=== PATIENT | female | born 1955 | race Caucasian/White ===

== ENCOUNTER 2017-04-10 11:30 | Emergency (ER) | payer BC ==
[2017-04-10 11:38] VITALS: BMI 27.4
[2017-04-10] MEDS ORDERED: ASPIRIN PO ONE (11:54)
--- NOTE | 2017-04-10 11:58 | DR.GENAD ---
HPI - PCP Primary Care Physician: COLLEEN - HPI Comment HPI Comment: PATIENT HAVE SOB AND CHEST PAIN TIME ONE DAY. SEEN IN PCP OFFICE. EKG INDICATED T WAVE CHANGES. HERE FOR FURTHER EVALUATION. PATIENT HAD SIMILAR PAIN BEFORE AND WAS ADMITTED IN [facility]. DENIES PREVIOUS CARDIAC CATH. - Complaint/Symptoms Chief Complaint Doctors Comments: CHEST PAIN, SOB FOR SEVERAL HOURS. Chief Complaint:: PATIENT WAS SEEN AT HER DOCTOR IN [place] AND WAS TOLD TO COME HER DUE TO HER EKG IN THE OFFICE. SHE STATED SHE HAS DIFFICULITY BREATHING - Nurses notes reviewed Nurses Notes Review: Yes - Source History Provided: Patient - Mode of Arrival Mode of Arrival: Ambulatory - Timing Onset of Chief Complaint: 04/09/17 Came on: Suddenly - Duration Duration: Constant Duration: Hours PMH - PMH Past Medical History: Yes Past Medical History: Hypertension Past Surgical History: Yes Surgical History: Hysterectomy, Ortho Surgery - Family History History of Family Medical Conditions: No - Social History Does patient currently use any type of tobacco product: No Have you used tobacco products in the last 12 months: No Type of Tobacco Use: None Does any household member use tobacco: No Alcohol Use: None Do you use any recreational Drugs:: No Lives With: Family Lives Where: Home - infectious screening In the last 2 months have you had wt loss of >10#?: NO Have you had fever, night sweats or hemotysis?: No Have you traveled outside the country in the last 6 months?: No Isolation: Standard ROS - Review of Systems Constitutional: Weakness, Fatigue. negative: Chills, Fever Eyes: No Symptoms Reported. negative: Eye Pain, Discharge ENTM: No Symptoms Reported. negative: Ear Pain, Nose Discharge, Nose Congestion , Throat Pain Respiratoy: Short of Breath. negative: Productive Cough, Non-Productive Cough, Wheezing, Hemoptysis Cardiovascular: Chest Pain. negative: Edema, Palpitations, Syncope Gastrointestinal/Abdominal: No Symptoms Reported Genitourinary: No Symptoms Reported. negative: Dysuria, Frequency, Hematuria Neurological: No Symptoms Reported, Headache, Weakness. negative: Dizziness Musculoskeletal: Muscle Pain Integumentary: No Symptoms Reported Hematologic/Lymphatic: No Symptoms Reported Endocrine: No Symptoms Reported All Other Systems: Reviewed and Negative PE - Vital Signs Vitals: Temperature 98.6 F Pulse Rate [Right Brachial] 60 Pulse Rate 68 Respiratory Rate 16 Blood Pressure [Right Arm] 200/82 Blood Pressure 209/89 O2 Sat by Pulse Oximetry 100 - General Limitations: No Limitations General Appearance: Alert - Head Head Exam: Normal Inspection - Eyes Eye exam: Normal Appearance - ENT ENT Exam: Normal External Ear Exam External Ear Exam: Normal External Inspection TM/Canal Exam: Bilateral Normal Nose Exam: Normal Nose Exam Mouth Exam: Normal Inspection Throat Exam: Normal Inspection - Neck Neck Exam: Trachea Midline - Chest Chest Inspection: Symmetric Chest Wall Rise - Respiratory Respiratory Exam: Normal Lung Sounds Bilat Respiratory Exam: Bilateral Clear to Auscultation - Cardiovascular Cardiovascular Exam: Regular Rate, Normal Rhythm, Normal Heart Sounds - Abdominal Exam Abdominal Exam: Normal Bowel Sounds, Soft. negative: Tenderness - Extremities Extremities Exam: Normal Inspection - Back Back Exam: Normal Inspection - Neurologic Neurological Exam: Alert, Oriented X3, CN II-XII Intact, Normal Gait, Reflexes Normal. negative: Motor Sensory Deficit - Psychiatric Psychiatric Exam: Anxious - Skin Skin Exam: Normal Color MDM - Additional Information Additional Information Obtained From: Family - Differential Diagnosis Differential Diagnosis: CHEST PAIN, RESPIRATORY DISTRESS Course - Treatment Treatment: SEE ORDERS. - Consultation Consultation Comments: DISCUSS PATIENT WITH DR. MARK, HE WILL ADMIT PATIENT. - Education/Counseling Education/Counseling: Patient, Family, Education Educated On: Treatment, Diagnosis ROR - Labs Reviewed Laboratory Results Reviewed?: Yes Result Diagrams: 04/10/17 12:02 04/10/17 12:02 Laboratory: WBC 8.0 X10^3/uL (3.6-10.0) 04/10/17 12:02 RBC 4.61 X10^6/uL (3.5-5.4) 04/10/17 12:02 Hgb 14.3 g/dL (12.0-16.0) 04/10/17 12:02 Hct 40.8 % (36.0-47.0) 04/10/17 12:02 MCV 88.5 fL (80.0-100.0) 04/10/17 12:02 MCH 31.0 pg (27.0-34.0) 04/10/17 12:02 MCHC 35.0 g/dL (33.0-35.0) 04/10/17 12:02 RDW 12.0 % (11.6-16.5) 04/10/17 12:02 Plt Count 261 X10^3/uL (150.0-450.0) 04/10/17 12:02 MPV 9.8 fL (7.4-11.0) 04/10/17 12:02 Neut % 69.6 % (42.0-75.0) 04/10/17 12:02 Lymph % 22.3 % (21.0-51.0) 04/10/17 12:02 [place] % 4.6 % (0.0-13.0) 04/10/17 12:02 Eos % 2.3 % (0.9-2.9) 04/10/17 12:02 Baso % 1.2 % (0.2-1.0) H 04/10/17 12:02 Neut # 5.6 x10^3/uL (2.2-4.8) H 04/10/17 12:02 Lymph # 1.8 X10^3/uL (1.3-2.9) 04/10/17 12:02 [place] # 0.4 x10^3/uL (0.3-0.8) 04/10/17 12:02 Eos # 0.2 x10^3/uL (0.0-0.2) 04/10/17 12:02 Baso # 0.1 X10^3/uL (0.0-0.1) 04/10/17 12:02 Absolute Nucleated RBC 0.0 /100WBC 04/10/17 12:02 INR Target Range - 04/10/17 12:02 INR 1.02 (0.8-1.3) 04/10/17 12:02 PTT 30.8 SECONDS (22.9-36.5) 04/10/17 12:02 PTT Comment - 04/10/17 12:02 D-Dimer < 100 ng/mL (0-400) 04/10/17 12:02 Sodium 139 mmol/L (136-145) 04/10/17 12:02 Corrected Sodium TNP 04/10/17 12:02 Potassium 3.8 mmol/L (3.5-5.1) 04/10/17 12:02 Chloride 101 mmol/L (98-107) 04/10/17 12:02 Carbon Dioxide 29.3 mmol/L (21-32) 04/10/17 12:02 BUN 12 mg/dL (7-18) 04/10/17 12:02 Creatinine 1.07 mg/dL (0.55-1.02) H 04/10/17 12:02 Est GFR (MDRD) Af Amer > 60 (>60) 04/10/17 12:02 Est GFR (MDRD) Non-Af 55 (>60) L 04/10/17 12:02 Glucose 104 mg/dL (65-99) H 04/10/17 12:02 Calcium 9.7 mg/dL (8.5-10.1) 04/10/17 12:02 B-Natriuretic Peptide 35.1 pg/mL (0-79) 04/10/17 12:02 Specimen Type Clean catch urine 04/10/17 12:04 Urine Color Straw (YELLOW) 04/10/17 12:04 Urine Appearance Clear (CLEAR) 04/10/17 12:04 Urine pH 8.0 (5.0 - 8.0) 04/10/17 12:04 Ur Specific [place] 1.010 (1.000-1.030) 04/10/17 12:04 Urine Protein Negative (NEGATIVE) 04/10/17 12:04 Urine Glucose (UA) Negative (NEGATIVE) 04/10/17 12:04 Urine Ketones Negative (NEGATIVE) 04/10/17 12:04 Urine Occult Blood Negative (NEGATIVE) 04/10/17 12:04 Urine Nitrite Negative (NEGATIVE) 04/10/17 12:04 Urine Bilirubin Negative (NEGATIVE) 04/10/17 12:04 Urine Urobilinogen Normal (NORMAL) 04/10/17 12:04 Ur Leukocyte Esterase 1+ (NEGATIVE) 04/10/17 12:04 Urine RBC 0-1 /HPF (NEGATIVE) 04/10/17 12:04 Urine WBC 0-3 /HPF (NEGATIVE) 04/10/17 12:04 Ur Squamous Epith Cells Rare /HPF (NEGATIVE) 04/10/17 12:04 Urine Bacteria Negative /HPF (NEGATIVE) 04/10/17 12:04 Ur Culture Indicated? No/not indicated 04/10/17 12:04 H. pylori IgG Antibody Negative (NEGATIVE) 04/10/17 12:02 - XRAY XRAY Findings: REPORT DISCUSS WITH PATIENT. - EKG Rhythm: NSR (EKG NOTED) - Diagnosis Discharge Problem: Respiratory distress Chest pain Qualifiers: Chest pain type: precordial pain Qualified Code(s): R07.2 - Precordial pain - Discharge Plan Disposition: ADMITTED INPATIENT Condition: Stable - Follow ups/Referrals - Instructions
--- NOTE | 2017-04-10 12:12 | RAD ---
HISTORY: Chest pain Study: AP portable chest Comparison: None Findings: The trachea is midline. The cardiac silhouette is unremarkable. The lungs are clear without focal infiltrate or effusion. The bony thorax is unremarkable. IMPRESSION: 1. No acute cardiopulmonary disease. Reported By:
[2017-04-10 12:21] LABS: BILIRUBIN,URINE NEGATIVE (NEGATIVE); BLOOD/HEMOGLOBIN,URINE NEGATIVE (NEGATIVE); GLUCOSE, URINE NEGATIVE (NEGATIVE); KETONES,URINE NEGATIVE (NEGATIVE); LEUKOCYTE ESTERASE ,URINE 1+ (NEGATIVE); NITRITES,URINE NEGATIVE (NEGATIVE); PROTEIN,URINE NEGATIVE (NEGATIVE); UROBILINOGEN,URINE NORMAL (NORMAL)
[2017-04-10 12:22] LABS: BLOOD UREA NITROGEN 12 mg/dL (7-18); CALCIUM 9.7 mg/dL (8.5-10.1); CARBON DIOXIDE 29.3 mmol/L (21-32); CHLORIDE 101 mmol/L (98-107); CREATININE 1.07 mg/dL (0.55-1.02); GLUCOSE 104 mg/dL (65-99); SODIUM 139 mmol/L (136-145); eGFR BLACK RACES > 60 (>60); eGFR NON BLACK RACES 55 (>60)
[2017-04-10 12:28] LABS: BASOPHILS # (AUTO) 0.1 X10^3/uL (0.0-0.1); BASOPHILS % (AUTO) 1.2 % (0.2-1.0); EOSINOPHILS # (AUTO) 0.2 x10^3/uL (0.0-0.2); EOSINOPHILS % (AUTO) 2.3 % (0.9-2.9); HEMATOCRIT 40.8 % (36.0-47.0); HEMOGLOBIN 14.3 g/dL (12.0-16.0); LYMPHOCYTES # (AUTO) 1.8 X10^3/uL (1.3-2.9); LYMPHOCYTES % (AUTO) 22.3 % (21.0-51.0); MEAN CORPUSCULAR VOLUME 88.5 fL (80.0-100.0); MEAN PLATELET VOLUME 9.8 fL (7.4-11.0); MONOCYTES # (AUTO) 0.4 x10^3/uL (0.3-0.8); MONOCYTES % (AUTO) 4.6 % (0.0-13.0); NEUTROPHILS # (AUTO) 5.6 x10^3/uL (2.2-4.8); NEUTROPHILS % (AUTO) 69.6 % (42.0-75.0); PLATELET COUNT 261 X10^3/uL (150.0-450.0); RED BLOOD COUNT 4.61 X10^6/uL (3.5-5.4)
[2017-04-10 12:32] LABS: APPEARANCE,URINE CLEAR (CLEAR); BACTERIA,URINE NEGATIVE /HPF (NEGATIVE); COLOR,URINE STRAW (YELLOW); RBC,URINE 0-1 /HPF (NEGATIVE); SQUAMOUS EPITHELIAL CELL,UR RARE /HPF (NEGATIVE)
[2017-04-10 12:36] LABS: B-TYPE NATRIURETIC PEPTIDE 35.1 pg/mL (0-79)
[2017-04-10 12:44] LABS: D DIMER < 100 ng/mL (0-400)
[2017-04-10] MEDS ORDERED: NIFEDIPINE CAP 10 MG PO ONE (13:25)
[2017-04-10] MEDS ORDERED: NIFEDIPINE CAP 10 MG ONE (13:30)
[2017-04-10 13:32] LABS: ALANINE AMINOTRANSFERASE 32 Units/L (12-78); ALBUMIN 4.2 g/dL (3.4-5.0); ALKALINE PHOSPHATASE 83 Units/L (46-116); ASPARTATE AMINO TRANSFERASE 26 Units/L (15-37); CKMB % 0.8 % (<4); CREATINE KINASE 129 Units/L (26-192); CREATINE KINASE MB < 1.0 ng/mL (0-4.0); TOTAL PROTEIN 8.2 g/dL (6.4-8.2); TROPONIN I < 0.02 ng/mL (0-1.5)
[2017-04-10] MEDS: ASPIRIN 81 MG CHEWTAB PO SCH (14:46)
[2017-04-10] MEDS ORDERED: PREVNAR 13 IM ONE (16:29)
[2017-04-10] MEDS: VISTARIL PO PRN (18:00)
[2017-04-10 18:19] LABS: CKMB % 0.8 % (<4); CREATINE KINASE 122 Units/L (26-192); CREATINE KINASE MB < 1.0 ng/mL (0-4.0); TROPONIN I < 0.02 ng/mL (0-1.5)
[2017-04-10] MEDS: NORCO 5/325 MG TAB PO PRN (21:26)
[2017-04-11 01:22] LABS: CKMB % 0.9 % (<4); CREATINE KINASE 113 Units/L (26-192); CREATINE KINASE MB < 1.0 ng/mL (0-4.0); TROPONIN I < 0.02 ng/mL (0-1.5)
[2017-04-11 05:19] LABS: BASOPHILS # (AUTO) 0.1 X10^3/uL (0.0-0.1); BASOPHILS % (AUTO) 1.1 % (0.2-1.0); EOSINOPHILS # (AUTO) 0.4 x10^3/uL (0.0-0.2); EOSINOPHILS % (AUTO) 4.3 % (0.9-2.9); HEMATOCRIT 41.9 % (36.0-47.0); HEMOGLOBIN 14.4 g/dL (12.0-16.0); MEAN CORPUSCULAR HEMOGLOBIN 30.8 pg (27.0-34.0); MEAN CORPUSCULAR HGB CONC 34.5 g/dL (33.0-35.0); MEAN CORPUSCULAR VOLUME 89.3 fL (80.0-100.0); MEAN PLATELET VOLUME 9.9 fL (7.4-11.0); MONOCYTES # (AUTO) 0.5 x10^3/uL (0.3-0.8); MONOCYTES % (AUTO) 6.4 % (0.0-13.0); NEUTROPHILS # (AUTO) 4.5 x10^3/uL (2.2-4.8); NEUTROPHILS % (AUTO) 53.2 % (42.0-75.0); PLATELET COUNT 274 X10^3/uL (150.0-450.0); RED BLOOD COUNT 4.69 X10^6/uL (3.5-5.4); RED CELL DISTRIBUTION WIDTH 12.5 % (11.6-16.5); WHITE BLOOD COUNT 8.5 X10^3/uL (3.6-10.0)
[2017-04-11 05:34] LABS: ALANINE AMINOTRANSFERASE 31 Units/L (12-78); ALBUMIN 3.9 g/dL (3.4-5.0); ALKALINE PHOSPHATASE 74 Units/L (46-116); ASPARTATE AMINO TRANSFERASE 24 Units/L (15-37); BLOOD UREA NITROGEN 18 mg/dL (7-18); CARBON DIOXIDE 26.6 mmol/L (21-32); CHLORIDE 104 mmol/L (98-107); CHOL/HDL RATIO 5.7 (0.0-5.0); CHOLESTEROL 255 mg/dL (0-200); CREATININE 1.42 mg/dL (0.55-1.02); GLUCOSE 93 mg/dL (65-99); HDL CHOLESTEROL 45 mg/dL (40-60); SODIUM 141 mmol/L (136-145); TOTAL PROTEIN 7.8 g/dL (6.4-8.2); TRIGLYCERIDES 197 mg/dL (0-150); eGFR BLACK RACES 48 (>60); eGFR NON BLACK RACES 40 (>60)
[2017-04-11] MEDS: ASPIRIN 81 MG CHEWTAB PO SCH (08:21)
[2017-04-11] MEDS ORDERED: PATIENT'S HOME MEDICATION (Misc Home Med 1 TAB) PO SCH (09:00)
[2017-04-11] MEDS ORDERED: PREVNAR 13 IM ONE (09:50)
[2017-04-11] MEDS: PEPCID 20 MG IV PREMIX* 20 MG/50 ML BAG IV SCH ×2 (10:30→20:48)
--- NOTE | 2017-04-11 13:54 | DR.H&P ---
H&P - History & Physical for Day of: H&P Date: 04/10/17 - Chief Complaint Chief Complaint: Chest pain, shortness of breath, left breast pain - Allergies Allergies/Adverse Reactions: Allergies Allergy/AdvReac Type Severity Reaction Status Date / Time codeine Allergy Verified 04/10/17 11:34 - History of Present Illness History of Present Illness: Ms. Rose is a 62-year-old white female who was admitted to the emergency room after presenting with complaints of chest pain and shortness of breath. Patient states pain started on Monday or Monday and has not improved. Patient denies any injury. Patient states she had a similar episode in November 2016 and was admitted to [facility] where she had a stress test and echocardiogram which were negative per patient. Patient also complains of left breast pain she recently had an ultrasound at [place]. We will admit patient for further evaluation of chest pain, ruling out any acute cardiac activity. - Past Medical History Past Medical History: Hypertension Additional Medical History: fibrocystic breast disease - Past Surgical History Surgical History: Hysterectomy, Ortho Surgery - Family History Family Medical History: Heart Failure, Hypertension - Social History Does patient currently use any type of tobacco product: No Have you used tobacco products in the last 12 months: No Type of Tobacco Use: None Does any household member use tobacco: No Alcohol Use: None Drug Use: None - Medications Home Medications: Triamterene/Hydrochlorothiazid [Triamterene-Hctz 37.5-25 mg Cp] 1 tab PO DAILY 04/11/17 [History Confirmed 04/11/17] - Review of Systems Constitutional: No Symptoms Reported Eyes: No Symptoms Reported ENT: No Symptoms Reported Respiratory: Shortness of Breath Cardiovascular: Chest Pain Gastrointestinal: No Symptoms Reported Genitourinary: No Symptoms Reported Musculoskeletal: No Symptoms Reported Skin: No Symptoms Reported Neurological: No Symptoms Reported - Physical Exam Vital Signs: Temperature 98.3 F Pulse Rate [Right Brachial] 64 Respiratory Rate 18 Blood Pressure [Right Arm] 125/59 O2 Sat by Pulse Oximetry 97 Oriented: Normal Eyes: Normal Ear: Normal Nose: Normal Throat: Normal Respiratory: Clear Throughout Cardiovascular: Normal. negative: Edema : Normal Auscultation: Bowel Sounds: Normal Palpation: Normal Tenderness: Normal Skin: Normal Musculoskeletal: Normal Affect: Anxious Speech Pattern: Clear, Appropriate - Assessment/Plan (1) Chest pain Qualifiers: Chest pain type: precordial pain Ischemic chest pain type: I Qualified Code(s): R07.2 - Precordial pain Status: Acute Plan: admit for serial cardiac enzymes and EKGs, chest x-ray in ER, blood pressure control, a.m. fasting lipids (2) Shortness of breath Status: Acute
--- NOTE | 2017-04-11 14:00 | PCM.PROG ---
Progress Note - Progress Note for Day of Date: 04/11/17 - Subjective Subjective: Mrs. Rose is a 62-year-old white female who was admitted from the ER last night with complaints of chest pain. Patient's serial troponins are stable. Patient continues to complain of chest pain and shortness of breath as well as left breast pain. CTA of the chest ordered for this a.m., patient started on Ecotrin 325, Crestor 20 mg daily. We will repeat a set of cardiac enzymes and EKG while obtaining patient's stress test and echo results from November 2016 for [facility]. - Past Medical Family Social History Past Med/Fam/Surg Hx: No changes since H&P Allergies: Allergies codeine Allergy (Verified 04/10/17 11:34) - Review of Systems ROS: No change since H&P - Vital Signs and I&O's Vital Signs: Temperature 98.3 F Pulse Rate [Right Brachial] 64 Respiratory Rate 18 Blood Pressure [Right Arm] 125/59 O2 Sat by Pulse Oximetry 97 Intake and Output: Intake & Output 04/09/17 04/10/17 04/11/17 04/12/17 11:59 11:59 11:59 11:59 Intake Total 260 Output Total 3 Balance 257 - Physical Exam Oriented: Normal Eyes: Normal Ear: Normal Nose: Normal Throat: Normal Respiratory: Normal Cardiovascular: Normal. negative: Edema : Normal Auscultation: Bowel Sounds: Normal Tenderness: Normal Skin: Normal Musculoskeletal: Normal Affect: Anxious Speech Pattern: Clear, Appropriate - Laboratory and Diagnostics Result Diagrams: 04/11/17 04:00 04/11/17 04:00 Labs: Laboratory WBC 8.5 X10^3/uL (3.6-10.0) 04/11/17 04:00 RBC 4.69 X10^6/uL (3.5-5.4) 04/11/17 04:00 Hgb 14.4 g/dL (12.0-16.0) 04/11/17 04:00 Hct 41.9 % (36.0-47.0) 04/11/17 04:00 MCV 89.3 fL (80.0-100.0) 04/11/17 04:00 MCH 30.8 pg (27.0-34.0) 04/11/17 04:00 MCHC 34.5 g/dL (33.0-35.0) 04/11/17 04:00 RDW 12.5 % (11.6-16.5) 04/11/17 04:00 Plt Count 274 X10^3/uL (150.0-450.0) 04/11/17 04:00 MPV 9.9 fL (7.4-11.0) 04/11/17 04:00 Neut % 53.2 % (42.0-75.0) 04/11/17 04:00 Lymph % 35.0 % (21.0-51.0) 04/11/17 04:00 [place] % 6.4 % (0.0-13.0) 04/11/17 04:00 Eos % 4.3 % (0.9-2.9) H 04/11/17 04:00 Baso % 1.1 % (0.2-1.0) H 04/11/17 04:00 Neut # 4.5 x10^3/uL (2.2-4.8) 04/11/17 04:00 Lymph # 3.0 X10^3/uL (1.3-2.9) H 04/11/17 04:00 [place] # 0.5 x10^3/uL (0.3-0.8) 04/11/17 04:00 Eos # 0.4 x10^3/uL (0.0-0.2) H 04/11/17 04:00 Baso # 0.1 X10^3/uL (0.0-0.1) 04/11/17 04:00 Absolute Nucleated RBC 0.0 /100WBC 04/11/17 04:00 INR Target Range - 04/10/17 12:02 INR 1.02 (0.8-1.3) 04/10/17 12:02 PTT 30.8 SECONDS (22.9-36.5) 04/10/17 12:02 PTT Comment - 04/10/17 12:02 D-Dimer < 100 ng/mL (0-400) 04/10/17 12:02 Sodium 141 mmol/L (136-145) 04/11/17 04:00 Corrected Sodium TNP 04/11/17 04:00 Potassium 3.9 mmol/L (3.5-5.1) 04/11/17 04:00 Chloride 104 mmol/L (98-107) 04/11/17 04:00 Carbon Dioxide 26.6 mmol/L (21-32) 04/11/17 04:00 BUN 18 mg/dL (7-18) 04/11/17 04:00 Creatinine 1.42 mg/dL (0.55-1.02) H 04/11/17 04:00 Est GFR (MDRD) Af Amer 48 (>60) L 04/11/17 04:00 Est GFR (MDRD) Non-Af 40 (>60) L 04/11/17 04:00 Glucose 93 mg/dL (65-99) 04/11/17 04:00 Calcium 9.0 mg/dL (8.5-10.1) 04/11/17 04:00 Corrected Calcium TNP 04/11/17 04:00 Magnesium 2.0 mg/dL (1.7-2.9) 04/10/17 12:02 Total Bilirubin 0.50 mg/dL (0.2-1.0) 04/11/17 04:00 AST 24 Units/L (15-37) 04/11/17 04:00 ALT 31 Units/L (12-78) 04/11/17 04:00 Alkaline Phosphatase 74 Units/L (46-116) 04/11/17 04:00 Creatine Kinase 113 Units/L (26-192) 04/11/17 00:35 CK-MB (CK-2) < 1.0 ng/mL (0-4.0) 04/11/17 00:35 CK/CKMB % Calc 0.9 % (<4) 04/11/17 00:35 Troponin I < 0.02 ng/mL (0-1.5) 04/11/17 00:35 B-Natriuretic Peptide 35.1 pg/mL (0-79) 04/10/17 12:02 Total Protein 7.8 g/dL (6.4-8.2) 04/11/17 04:00 Albumin 3.9 g/dL (3.4-5.0) 04/11/17 04:00 Globulin 3.9 g/dL (2.5-4.5) 04/11/17 04:00 Albumin/Globulin Ratio 1.0 Ratio (1.1-2.1) L 04/11/17 04:00 Triglycerides 197 mg/dL (0-150) H 04/11/17 04:00 Cholesterol 255 mg/dL (0-200) H 04/11/17 04:00 LDL Cholesterol, Calc 171 mg/dL (0-100) H 04/11/17 04:00 HDL Cholesterol 45 mg/dL (40-60) 04/11/17 04:00 Cholesterol/HDL Ratio 5.7 (0.0-5.0) H 04/11/17 04:00 Specimen Type Clean catch urine 04/10/17 12:04 Urine Color Straw (YELLOW) 04/10/17 12:04 Urine Appearance Clear (CLEAR) 04/10/17 12:04 Urine pH 8.0 (5.0 - 8.0) 04/10/17 12:04 Ur Specific [place] 1.010 (1.000-1.030) 04/10/17 12:04 Urine Protein Negative (NEGATIVE) 04/10/17 12:04 Urine Glucose (UA) Negative (NEGATIVE) 04/10/17 12:04 Urine Ketones Negative (NEGATIVE) 04/10/17 12:04 Urine Occult Blood Negative (NEGATIVE) 04/10/17 12:04 Urine Nitrite Negative (NEGATIVE) 04/10/17 12:04 Urine Bilirubin Negative (NEGATIVE) 04/10/17 12:04 Urine Urobilinogen Normal (NORMAL) 04/10/17 12:04 Ur Leukocyte Esterase 1+ (NEGATIVE) 04/10/17 12:04 Urine RBC 0-1 /HPF (NEGATIVE) 04/10/17 12:04 Urine WBC 0-3 /HPF (NEGATIVE) 04/10/17 12:04 Ur Squamous Epith Cells Rare /HPF (NEGATIVE) 04/10/17 12:04 Urine Bacteria Negative /HPF (NEGATIVE) 04/10/17 12:04 Ur Culture Indicated? No/not indicated 04/10/17 12:04 H. pylori IgG Antibody Negative (NEGATIVE) 04/10/17 12:02 - Plan (1) Chest pain Status: Acute Qualifiers: Chest pain type: precordial pain Ischemic chest pain type: I Qualified Code(s): R07.2 - Precordial pain Plan: serial cardiac enzymes and EKGsdone on admission, continued with complaints of pain this morning. We'll start on Ecotrin 325 daily and Crestor 20 daily, will repeat EKG and cardiac enzymes this morning. Discussed CTA of the chest with patient. Echocardiogram results and stress test results from November 2016 requested from [facility]. (2) Shortness of breath Status: Acute Plan: supplemental O2, CTA of the chest ordered today (3) Hyperlipidemia Status: Acute Qualifiers: Hyperlipidemia type: H Plan: crestor 20mg po daily (4) Fibrocystic breast Status: Acute Qualifiers: Laterality: L Plan: obtain us report from [facility] for pt's chart
[2017-04-11] MEDS: ECOTRIN TAB 325 MG PO SCH (14:24)
[2017-04-11 14:49] LABS: CKMB % 0.8 % (<4); CREATINE KINASE 132 Units/L (26-192); CREATINE KINASE MB < 1.0 ng/mL (0-4.0); TROPONIN I < 0.02 ng/mL (0-1.5)
[2017-04-11] MEDS: NORCO 5/325 MG TAB PO PRN (15:26)
[2017-04-11] MEDS ORDERED: NS 1/2 1000 ML IV 1,000 ML IV ONE (20:04)
[2017-04-11] MEDS: NS 1/2 1000 ML IV 1,000 ML IV SCH (20:47)
[2017-04-11] MEDS: CRESTOR TAB 10 MG PO SCH (20:48)
[2017-04-11] MEDS: VISTARIL PO PRN (20:51)
[2017-04-12 05:23] LABS: BASOPHILS % (AUTO) 0.1 % (0.2-1.0); EOSINOPHILS # (AUTO) 0.3 x10^3/uL (0.0-0.2); EOSINOPHILS % (AUTO) 3.8 % (0.9-2.9); HEMATOCRIT 39.7 % (36.0-47.0); HEMOGLOBIN 13.4 g/dL (12.0-16.0); LYMPHOCYTES # (AUTO) 2.4 X10^3/uL (1.3-2.9); LYMPHOCYTES % (AUTO) 33.6 % (21.0-51.0); MEAN CORPUSCULAR HEMOGLOBIN 30.5 pg (27.0-34.0); MEAN CORPUSCULAR HGB CONC 33.9 g/dL (33.0-35.0); MEAN CORPUSCULAR VOLUME 90.1 fL (80.0-100.0); MEAN PLATELET VOLUME 9.6 fL (7.4-11.0); MONOCYTES # (AUTO) 0.5 x10^3/uL (0.3-0.8); MONOCYTES % (AUTO) 7.2 % (0.0-13.0); NEUTROPHILS # (AUTO) 3.9 x10^3/uL (2.2-4.8); NEUTROPHILS % (AUTO) 55.3 % (42.0-75.0); PLATELET COUNT 212 X10^3/uL (150.0-450.0); RED BLOOD COUNT 4.41 X10^6/uL (3.5-5.4); RED CELL DISTRIBUTION WIDTH 11.9 % (11.6-16.5)
[2017-04-12 05:44] LABS: ALANINE AMINOTRANSFERASE 35 Units/L (12-78); ALBUMIN 3.3 g/dL (3.4-5.0); ALKALINE PHOSPHATASE 69 Units/L (46-116); ASPARTATE AMINO TRANSFERASE 23 Units/L (15-37); BLOOD UREA NITROGEN 19 mg/dL (7-18); CALCIUM 8.2 mg/dL (8.5-10.1); CARBON DIOXIDE 26.2 mmol/L (21-32); CHLORIDE 107 mmol/L (98-107); COR CA(FOR HYPOALB) 8.8 mg/dL (8.5-10.1); CREATININE 1.02 mg/dL (0.55-1.02); GLUCOSE 88 mg/dL (65-99); SODIUM 141 mmol/L (136-145); TOTAL PROTEIN 6.8 g/dL (6.4-8.2); eGFR BLACK RACES > 60 (>60); eGFR NON BLACK RACES 58 (>60)
[2017-04-12] MEDS ORDERED: NS 100 ML IV 100 ML IV ONE (06:18)
--- NOTE | 2017-04-12 07:02 | CT ---
HISTORY: Shortness of breath, chest pain Study: CTA chest with contrast for pulmonary embolus Comparison: None Technique: Axial post-contrast images with coronal, sagittal, and 3 dimensional maximum projection i mages obtained and evaluated . Dose reduction procedures were used with MA/kv adjusted for body size . Findings: There is no evidence for acute pulmonary thromboembolic disease. Examination of the mediastinum demo nstrated no evidence for mediastinal masses, enlarged lymphadenopathy or enlarged hilar adenopathy. There is a small pericardial effusion present maximum width 1.1 centimeters. No pleural effusions ar e identified. No chest wall or axillary abnormality is identified. Those portions of the upper abdom inal organs visualized were within normal limits. Examination of the lung yu demonstrated mild b iapical pleural thickening. There is no evidence for significant nodules, masses, consolidation, gil eolar infiltrates, or bronchiectasis. Diffuse peribronchial thickening is present consistent with br onchitis which could be acute, chronic, or both. IMPRESSION: No evidence for acute pulmonary thromboembolic disease Diffuse peribronchial thickening consistent with bronchitis which could be acute, chronic, or both Small pericardial effusion maximum width 1.1 centimeters Reported By:
[2017-04-12] MEDS ORDERED: K-LYTE EFFERVESCENT PO PRN (07:14)
[2017-04-12] MEDS ORDERED: K-RIDER 10 MEQ/NS 100 ML 10 MEQ/100 ML BAG IV PRN (07:14)
[2017-04-12] MEDS ORDERED: POTASSIUM CHLORIDE LIQ 20 MEQ UDC PO PRN (07:14)
[2017-04-12] MEDS ORDERED: NS 1/2 1000 ML IV 1,000 ML IV ONE ×2 (08:01→22:45)
[2017-04-12] MEDS: ECOTRIN TAB 325 MG PO SCH (08:17)
[2017-04-12] MEDS: K-DUR TAB 20 MEQ PO PRN (08:17)
[2017-04-12] MEDS: NS 1/2 1000 ML IV 1,000 ML IV SCH ×2 (08:17→22:53)
[2017-04-12] MEDS: PEPCID 20 MG IV PREMIX* 20 MG/50 ML BAG IV SCH ×2 (08:17→21:03)
[2017-04-12] MEDS: NORCO 5/325 MG TAB PO PRN (08:22)
[2017-04-12] MEDS: ZITHROMAX INJ 500 MG VIAL 500 MG in NS 250 ML IV 250 ML IV SCH (10:35)
[2017-04-12] MEDS: SOLU-Medrol 40 MG VIAL IVP SCH ×3 (10:35→21:03)
[2017-04-12] MEDS ORDERED: ZOFRAN INJ 4 MG VIAL IVP PRN (13:59)
[2017-04-12] MEDS ORDERED: PROVENTIL NEB TX 0.083% 2.5MG/ 3ML NEB PRN (18:02)
[2017-04-12] MEDS: VISTARIL PO PRN (21:03)
[2017-04-12] MEDS: CRESTOR TAB 10 MG PO SCH (21:03)
[2017-04-13] MEDS: VISTARIL PO PRN (05:25)
[2017-04-13 05:54] LABS: ALANINE AMINOTRANSFERASE 45 Units/L (12-78); ALBUMIN 3.6 g/dL (3.4-5.0); ALKALINE PHOSPHATASE 78 Units/L (46-116); ASPARTATE AMINO TRANSFERASE 35 Units/L (15-37); BLOOD UREA NITROGEN 15 mg/dL (7-18); CALCIUM 8.8 mg/dL (8.5-10.1); CARBON DIOXIDE 22.4 mmol/L (21-32); CHLORIDE 108 mmol/L (98-107); COR NA(FOR HYPERGLY) 144 mmol/L (136-145); CREATININE 1.15 mg/dL (0.55-1.02); GLUCOSE 142 mg/dL (65-99); SODIUM 143 mmol/L (136-145); TOTAL PROTEIN 7.7 g/dL (6.4-8.2); eGFR BLACK RACES > 60 (>60); eGFR NON BLACK RACES 50 (>60)
[2017-04-13 06:20] LABS: BASOPHILS % (AUTO) 0.2 % (0.2-1.0); HEMATOCRIT 40.2 % (36.0-47.0); HEMOGLOBIN 13.8 g/dL (12.0-16.0); LYMPHOCYTES # (AUTO) 1.4 X10^3/uL (1.3-2.9); LYMPHOCYTES % (AUTO) 6.8 % (21.0-51.0); MEAN CORPUSCULAR HEMOGLOBIN 30.8 pg (27.0-34.0); MEAN CORPUSCULAR HGB CONC 34.4 g/dL (33.0-35.0); MEAN CORPUSCULAR VOLUME 89.3 fL (80.0-100.0); MEAN PLATELET VOLUME 10.6 fL (7.4-11.0); MONOCYTES # (AUTO) 0.3 x10^3/uL (0.3-0.8); MONOCYTES % (AUTO) 1.3 % (0.0-13.0); NEUTROPHILS # (AUTO) 19.3 x10^3/uL (2.2-4.8); NEUTROPHILS % (AUTO) 91.7 % (42.0-75.0); PLATELET COUNT 255 X10^3/uL (150.0-450.0); RED CELL DISTRIBUTION WIDTH 11.9 % (11.6-16.5)
[2017-04-13 07:27] LABS: PLATELET MORPHOLOGY COMMENT NORMAL (NORMAL)
[2017-04-13] MEDS: K-DUR TAB 20 MEQ PO PRN (07:52)
[2017-04-13] MEDS: ECOTRIN TAB 325 MG PO SCH (08:01)
[2017-04-13] MEDS: ZITHROMAX INJ 500 MG VIAL 500 MG in NS 250 ML IV 250 ML IV SCH (08:02)
[2017-04-13] MEDS: PEPCID 20 MG IV PREMIX* 20 MG/50 ML BAG IV SCH (08:02)
[2017-04-13] MEDS ORDERED: MAXZIDE 37.5/25 MG PO SCH (09:00)
[2017-04-13 09:22] VITALS: BP 149/70
== END 2017-04-13 09:45 | disposition short-term general hospital (02) ==
LOC: ER 11:47 → MED/SURG 13:26
PROVIDERS: ADMIT Internal Medicine; ATTEND Internal Medicine
PROC: 3E0234Z Introduction of Serum, Toxoid and Vaccine into Muscle, Percutaneous Approach (ICD-10-PCS; principal; 2017-04-11)
DX: R07.2 Precordial pain (principal); J20.8 Acute bronchitis due to other specified organisms; R06.02 Shortness of breath; R06.09 Other forms of dyspnea; N64.4 Mastodynia; I10 Essential (primary) hypertension; E78.2 Mixed hyperlipidemia; N60.12 Diffuse cystic mastopathy of left breast; Z23 Encounter for immunization
CPT/HCPCS: 36415; 71010; 71275; 80053; 80061; 81001; 82550; 82553; 83735; 83880; 84484; 85025; 85378; 85610; 85730; 86677; 93005; 93010; 94640; 94760; 96374; 99284; A4216; A4222; Q0177; S0028; 90670; G0378; J0456; J2405; J2920; J7613

== ENCOUNTER 2017-06-13 16:50 | Observation (INO) | payer BC ==
--- NOTE | 2017-06-13 17:10 | DR.GENAD ---
HPI - PCP Primary Care Physician: JAS - HPI Comment HPI Comment: PATIENT DEVELOP SHARP PAIN IN PRECORDIAL AREA TIMES 2 HRS WHICH IS SPONTANOULY RESOLVE WHILE IN ED. PAIN ASSOCIATED WITH SOB. NO FEVER OR COUGH. HAVE HAD LYMPH NODE PAIN IN LEFT AXILLA GOING TO LEFT BREAST IN THE PAST. THIS PAIN IS DIFFERENT. - Complaint/Symptoms Chief Complaint Doctors Comments: CHEST PAIN TIMES 2HRS WITH SOB. Chief Complaint:: PT. C/O LEFT CHEST WALL PAIN AND PAIN TO LEFT BREAST. PT. ALSO C/O SHORTNESS OF BREATH. PT. STATES SHE HAS PROBLEMS WITH HER LYMPH NODES BEING SWOLLEN TO HER LEFT UNDERARM AND LEFT BREAST X 2 YEARS. PT. SAYS SHE HAD A SHARP PAIN TO HER CHEST ABOUT 2 HOURS AGO WHILE IN THE SHOWER. - Nurses notes reviewed Nurses Notes Review: Yes - Source History Provided: Patient - Mode of Arrival Mode of Arrival: Ambulatory - Timing Onset of Chief Complaint: 06/13/17 Came on: Suddenly - Duration Duration: Constant Duration: Hours - Severity Severity: Moderate PMH - PMH Past Medical History: Yes Past Medical History: Hypertension Past Surgical History: Yes Surgical History: Hysterectomy, Ortho Surgery - Family History History of Family Medical Conditions: Yes Family Medical History: Heart Failure, Hypertension - Social History Does patient currently use any type of tobacco product: No Have you used tobacco products in the last 12 months: No Type of Tobacco Use: None Does any household member use tobacco: No Alcohol Use: None Do you use any recreational Drugs:: No Lives With: Significant Other Lives Where: Home - infectious screening In the last 2 months have you had wt loss of >10#?: NO Have you had fever, night sweats or hemotysis?: No Have you traveled outside the country in the last 6 months?: No Isolation: Standard ROS - Review of Systems Constitutional: No Symptoms Reported. negative: Chills, Fever Eyes: No Symptoms Reported. negative: Eye Pain, Discharge ENTM: No Symptoms Reported. negative: Ear Pain, Nose Discharge, Nose Congestion , Throat Pain Respiratoy: Short of Breath. negative: Productive Cough, Non-Productive Cough, Wheezing, Hemoptysis Cardiovascular: Chest Pain. negative: Edema Gastrointestinal/Abdominal: No Symptoms Reported Genitourinary: No Symptoms Reported Neurological: No Symptoms Reported Musculoskeletal: No Symptoms Reported Integumentary: No Symptoms Reported Hematologic/Lymphatic: No Symptoms Reported Endocrine: No Symptoms Reported All Other Systems: Reviewed and Negative PE - Vital Signs Vitals: Temperature 98.1 F Pulse Rate 62 Respiratory Rate 17 Blood Pressure [Left Arm] 149/70 Blood Pressure [Right Arm] 141/65 Blood Pressure 207/82 O2 Sat by Pulse Oximetry 96 - General Limitations: No Limitations General Appearance: Alert - Head Head Exam: Normal Inspection - Eyes Eye exam: Normal Appearance - ENT ENT Exam: Normal External Ear Exam External Ear Exam: Normal External Inspection TM/Canal Exam: Bilateral Normal Nose Exam: Normal Nose Exam Mouth Exam: Normal Inspection Throat Exam: Normal Inspection - Neck Neck Exam: Normal Inspection - Chest Chest Inspection: Symmetric Chest Wall Rise - Respiratory Respiratory Exam: Normal Lung Sounds Bilat Respiratory Exam: Bilateral Clear to Auscultation - Cardiovascular Cardiovascular Exam: Regular Rate, Normal Rhythm, Normal Heart Sounds - Abdominal Exam Abdominal Exam: Normal Bowel Sounds, Soft. negative: Tenderness - Extremities Extremities Exam: Normal Inspection - Back Back Exam: Normal Inspection - Neurologic Neurological Exam: Alert, Oriented X3 - Skin Skin Exam: Normal Color MDM - Additional Information Additional Information Obtained From: Family - Differential Diagnosis Differential Diagnosis: CHEST PAIN, HTN, HISTORY LYMPH NODE PAIN Course - Treatment Treatment: SEE ORDERS. MED FOR BP, IMPROVING. ASA IN ED. - Consultation Consultation Comments: DISCUSS PATIENT WITH DR. VAZQUEZ. HE WILL ADMIT PATIENT. - Education/Counseling Education/Counseling: Patient, Family, Education Educated On: Diagnosis ROR - Labs Reviewed Laboratory Results Reviewed?: Yes Result Diagrams: 06/13/17 17:11 06/13/17 17:39 - XRAY XRAY Findings: REPORT DISCUSS WITH PATIENT. - Diagnosis Discharge Problem: Chest pain Qualifiers: Chest pain type: precordial pain Qualified Code(s): R07.2 - Precordial pain Hypertension Qualifiers: Hypertension type: essential hypertension Qualified Code(s): I10 - Essential ( primary) hypertension - Discharge Plan Disposition: ADMITTED INPATIENT Condition: Stable - Follow ups/Referrals - Instructions
[2017-06-13 17:24] LABS: BASOPHILS # (AUTO) 0.1 X10^3/uL (0.0-0.1); BASOPHILS % (AUTO) 1.1 % (0.2-1.0); EOSINOPHILS # (AUTO) 0.2 x10^3/uL (0.0-0.2); EOSINOPHILS % (AUTO) 2.8 % (0.9-2.9); HEMATOCRIT 38.8 % (36.0-47.0); HEMOGLOBIN 13.4 g/dL (12.0-16.0); LYMPHOCYTES # (AUTO) 2.3 X10^3/uL (1.3-2.9); LYMPHOCYTES % (AUTO) 31.1 % (21.0-51.0); MEAN CORPUSCULAR HEMOGLOBIN 30.5 pg (27.0-34.0); MEAN CORPUSCULAR HGB CONC 34.5 g/dL (33.0-35.0); MEAN CORPUSCULAR VOLUME 88.3 fL (80.0-100.0); MEAN PLATELET VOLUME 10.2 fL (7.4-11.0); MONOCYTES # (AUTO) 0.5 x10^3/uL (0.3-0.8); MONOCYTES % (AUTO) 6.6 % (0.0-13.0); NEUTROPHILS # (AUTO) 4.4 x10^3/uL (2.2-4.8); NEUTROPHILS % (AUTO) 58.4 % (42.0-75.0); PLATELET COUNT 207 X10^3/uL (150.0-450.0); RED CELL DISTRIBUTION WIDTH 12.4 % (11.6-16.5); WHITE BLOOD COUNT 7.5 X10^3/uL (3.6-10.0)
--- NOTE | 2017-06-13 17:35 | RAD ---
HISTORY: Left upper chest pain. Study: Portable chest. Comparison: CT chest dated April 12, 2017 and chest x-ray dated April 10, 2017. Findings: The trachea is midline. The cardiac silhouette is unremarkable. No obvious focal consolidation, ple ural effusion, or pneumothorax.. The bony thorax is unremarkable. IMPRESSION: No acute cardiopulmonary disease. Reported By:
[2017-06-13 17:50] LABS: B-TYPE NATRIURETIC PEPTIDE 70.4 pg/mL (0-79)
[2017-06-13] MEDS ORDERED: NIFEDIPINE CAP 10 MG PO ONE (17:50)
[2017-06-13] MEDS ORDERED: NIFEDIPINE CAP 10 MG ONE (17:52)
[2017-06-13 18:20] LABS: BLOOD UREA NITROGEN 15 mg/dL (7-18); CALCIUM 8.9 mg/dL (8.5-10.1); CARBON DIOXIDE 24.7 mmol/L (21-32); CHLORIDE 107 mmol/L (98-107); COR NA(FOR HYPERGLY) 142 mmol/L (136-145); CREATININE 1.01 mg/dL (0.55-1.02); SODIUM 142 mmol/L (136-145); TROPONIN I < 0.02 ng/mL (0-1.5); eGFR BLACK RACES > 60 (>60); eGFR NON BLACK RACES 59 (>60)
[2017-06-13 18:24] LABS: ALANINE AMINOTRANSFERASE 27 Units/L (12-78); ALBUMIN 3.8 g/dL (3.4-5.0); ALKALINE PHOSPHATASE 75 Units/L (46-116); ASPARTATE AMINO TRANSFERASE 24 Units/L (15-37); CKMB % 0.8 % (<4); CREATINE KINASE 124 Units/L (26-192); CREATINE KINASE MB < 1.0 ng/mL (0-4.0); TOTAL PROTEIN 7.5 g/dL (6.4-8.2)
[2017-06-13] MEDS ORDERED: ASPIRIN 81 MG CHEWTAB PO ONE (18:41)
[2017-06-13 19:24] LABS: BILIRUBIN,URINE NEGATIVE (NEGATIVE); BLOOD/HEMOGLOBIN,URINE NEGATIVE (NEGATIVE); GLUCOSE, URINE NEGATIVE (NEGATIVE); KETONES,URINE NEGATIVE (NEGATIVE); LEUKOCYTE ESTERASE ,URINE 1+ (NEGATIVE); NITRITES,URINE NEGATIVE (NEGATIVE); PH,URINE 6.5 (5.0 - 8.0); PROTEIN,URINE NEGATIVE (NEGATIVE); UROBILINOGEN,URINE NORMAL (NORMAL)
[2017-06-13 19:33] LABS: APPEARANCE,URINE CLEAR (CLEAR); COLOR,URINE PALE YELLOW (YELLOW); RBC,URINE NONE SEEN /HPF (NEGATIVE)
[2017-06-13 19:34] LABS: BACTERIA,URINE NEGATIVE /HPF (NEGATIVE); SQUAMOUS EPITHELIAL CELL,UR FEW /HPF (NEGATIVE)
[2017-06-13] MEDS ORDERED: NITROSTAT SL PRN (20:12)
[2017-06-13] MEDS ORDERED: CATAPRES TAB 0.1 MG PO ONE (20:13)
[2017-06-13 20:25] VITALS: BMI 27.3
[2017-06-13] MEDS ORDERED: KLONOPIN TAB 0.5 MG PO SCH (21:00)
[2017-06-13] MEDS ORDERED: ASPIRIN 81 MG CHEWTAB ONE (21:11)
[2017-06-13 23:38] LABS: CKMB % 0.9 % (<4); CREATINE KINASE 118 Units/L (26-192); CREATINE KINASE MB < 1.0 ng/mL (0-4.0); TROPONIN I < 0.02 ng/mL (0-1.5)
[2017-06-14] MEDS ORDERED: TYLENOL 325 MG TAB PO PRN (04:54)
[2017-06-14] MEDS ORDERED: K-LYTE EFFERVESCENT PO PRN (04:55)
[2017-06-14] MEDS ORDERED: MAGNESIUM SULFATE 1 GM/100 mL PREMIX 1 GM/100 ML BAG IV PRN (04:55)
[2017-06-14] MEDS ORDERED: MAG-OX TAB PO PRN (04:55)
[2017-06-14] MEDS ORDERED: K-RIDER 10 MEQ/NS 100 ML 10 MEQ/100 ML BAG IV PRN (04:55)
[2017-06-14 06:11] LABS: ALANINE AMINOTRANSFERASE 26 Units/L (12-78); ALBUMIN 3.5 g/dL (3.4-5.0); ALKALINE PHOSPHATASE 69 Units/L (46-116); ASPARTATE AMINO TRANSFERASE 24 Units/L (15-37); BLOOD UREA NITROGEN 14 mg/dL (7-18); CALCIUM 8.9 mg/dL (8.5-10.1); CHLORIDE 109 mmol/L (98-107); CREATININE 0.95 mg/dL (0.55-1.02); SODIUM 142 mmol/L (136-145); TOTAL PROTEIN 6.9 g/dL (6.4-8.2); eGFR BLACK RACES > 60 (>60); eGFR NON BLACK RACES > 60 (>60)
[2017-06-14 06:13] LABS: BASOPHILS # (AUTO) 0.1 X10^3/uL (0.0-0.1); BASOPHILS % (AUTO) 2.3 % (0.2-1.0); EOSINOPHILS # (AUTO) 0.2 x10^3/uL (0.0-0.2); EOSINOPHILS % (AUTO) 3.7 % (0.9-2.9); HEMATOCRIT 36.7 % (36.0-47.0); HEMOGLOBIN 12.4 g/dL (12.0-16.0); LYMPHOCYTES # (AUTO) 2.3 X10^3/uL (1.3-2.9); LYMPHOCYTES % (AUTO) 36.8 % (21.0-51.0); MEAN CORPUSCULAR HEMOGLOBIN 29.8 pg (27.0-34.0); MEAN CORPUSCULAR HGB CONC 33.7 g/dL (33.0-35.0); MEAN CORPUSCULAR VOLUME 88.3 fL (80.0-100.0); MEAN PLATELET VOLUME 10.5 fL (7.4-11.0); MONOCYTES # (AUTO) 0.5 x10^3/uL (0.3-0.8); MONOCYTES % (AUTO) 7.3 % (0.0-13.0); NEUTROPHILS # (AUTO) 3.1 x10^3/uL (2.2-4.8); NEUTROPHILS % (AUTO) 49.9 % (42.0-75.0); PLATELET COUNT 185 X10^3/uL (150.0-450.0); RED BLOOD COUNT 4.15 X10^6/uL (3.5-5.4); RED CELL DISTRIBUTION WIDTH 12.6 % (11.6-16.5); WHITE BLOOD COUNT 6.2 X10^3/uL (3.6-10.0)
[2017-06-14 06:57] LABS: CKMB % 0.9 % (<4); CREATINE KINASE 112 Units/L (26-192); CREATINE KINASE MB < 1.0 ng/mL (0-4.0); TROPONIN I < 0.02 ng/mL (0-1.5)
[2017-06-14] MEDS ORDERED: ZESTRIL TAB 5 MG PO SCH (09:00)
[2017-06-14] MEDS ORDERED: PROTONIX TAB 40 MG PO SCH (09:00)
[2017-06-14] MEDS ORDERED: ASPIRIN PO SCH (09:00)
[2017-06-14] MEDS ORDERED: TORADOL 30 MG VIAL IVP SCH (10:00)
[2017-06-14 12:08] VITALS: BP 160/69
[2017-06-14] MEDS: NORCO 5/325 MG TAB PO PRN ×2 (12:30→15:50)
[2017-06-14] MEDS ORDERED: ZESTRIL TAB 10 MG PO SCH (13:00)
--- NOTE | 2017-06-14 13:40 | DR.H&P ---
H&P - Allergies Allergies/Adverse Reactions: Allergies Allergy/AdvReac Type Severity Reaction Status Date / Time codeine Allergy Verified 04/10/17 11:34 - Past Medical History Past Medical History: Hypertension Additional Medical History: fibrocystic breast disease - Past Surgical History Surgical History: Hysterectomy, Ortho Surgery - Family History Family Medical History: Heart Failure, Hypertension - Social History Does patient currently use any type of tobacco product: No Have you used tobacco products in the last 12 months: No Type of Tobacco Use: None Does any household member use tobacco: No Alcohol Use: None Drug Use: None - Medications Home Medications: Clonazepam [Klonopin Tab 0.5 mg] 1 tab PO HS 06/13/17 [History Confirmed ] Lisinopril [ZESTRIL *] 1 tab PO DAILY 06/13/17 [History Confirmed 06/13/17] Pantoprazole Sodium 40 mg [PROTONIX 40 MG *] 1 tab PO DAILY 06/13/17 [History Confirmed 06/13/17] - Physical Exam Vital Signs: Temperature 97.1 F Pulse Rate [Apical] 52 Pulse Rate 62 Respiratory Rate 18 Blood Pressure [Left Arm] 160/69 Blood Pressure [Right Arm] 141/65 Blood Pressure 207/82 O2 Sat by Pulse Oximetry 96
--- NOTE | 2017-06-14 16:55 | US ---
HISTORY: Left breast and axillary pain Study: Left breast ultrasound Comparison: None Technique: Multiple grayscale and color Doppler images of the left breast were obtained. Findings: Targeted sonographic evaluation of the region of interest at 12 o'clock approximately 4 cm from the n ipple demonstrates a heterogeneous mixed echogenicity nodule measuring 1.5 cm without posterior acous tical features or internal vascularity with cystic component favored to represent a complex cyst with internal debris and septation with alternative less likely differential considerations which include a liquefying hematoma, necrotic lymph node, early abscess, and primary breast carcinoma less likely but for which correlation with routine outpatient bilateral mammography as well as correlation with p revious exams is recommended. Along the axillary tail is a superficial 1.4 cm hypoechoic nodule witho ut posterior acoustical features or internal vascularity with eccentric hyperechoic bands for which p rimary differential considerations include a benign fat lobule, lipoma, hamartoma, fibroadenoma, or o il cyst. A more aggressive processes again less likely but for which short-term follow-up is again re commended as above. IMPRESSION: Probably benign left breast nodules with differential considerations and follow-up recommendations as above. Reported By:
== END 2017-06-14 16:10 | disposition home or self-care (01) | DRG 313 ==
LOC: ER 17:02 → OBS 18:33
PROVIDERS: ADMIT Internal Medicine; ATTEND Internal Medicine
DX: R07.89 Other chest pain (principal); R07.2 Precordial pain; R06.02 Shortness of breath; I10 Essential (primary) hypertension; N63.20 Unspecified lump in the left breast, unspecified quadrant; F41.8 Other specified anxiety disorders; R94.31 Abnormal electrocardiogram [ECG] [EKG]; Z79.1 Long term (current) use of non-steroidal anti-inflammatories (NSAID)
CPT/HCPCS: 36415; 71010; 76642; 80053; 81001; 82550; 82553; 83735; 83880; 84484; 85025; 85378; 85610; 85730; 93005; 93010; 94760; 96365; 99284; A4216; A4222; G0378; J1885

== ENCOUNTER → 2017-07-04 | Outpatient (CLI) | payer BC ==
[2017-06-14 12:08] VITALS: BP 160/69
--- NOTE | 2017-07-10 16:24 | MG ---
HISTORY: 62 year old female with left lateral breast pain for 2 years. Comparison: Ultrasound 06/14/2017 FINDINGS: Cc and MLO projections of the right and left breast were obtained. Scattered fibroglandular tissue i s seen to be present. No significant architectural distortion, mass or clustered microcalcifications can be observed to suggest malignancy. IMPRESSION: NO RADIOGRAPHIC EVIDENCE OF MALIGNANCY. ACR CATEGORY I - NEGATIVE EXAM. Recommendation: Yearly screening mammogram. Diagnostic CAD was utilized and reviewed. * 0 (ZERO) - ASSESSMENT INCOMPLETE; ADDITIONAL IMAGING IS NEEDED. * 1/1 (ONE) - NEGATIVE. * 2/II (TWO) - BENIGN FINDINGS. * 3/III (THREE) - PROBABLY BENIGN FINDING; SHORT INTERVAL FOLLOW-UP SUGGESTED. * 4/IV (FOUR) - SUSPICIOUS ABNORMALITY; BIOPSY SHOULD BE CONSIDERED. * 5/V - HIGHLY SUSPICIOUS OF MALIGNANCY; BIOPSY SHOULD BE PERFORMED. A NEGATIVE X-RAY REPORT SHOULD NOT DELAY BIOPSY IF A DOMINANT OR CLINICALLY SUSPICIOUS MASS IS PRESENT; 4 TO 8 PERCENT OF CANCERS ARE NOT IDENTIFIED BY X-RAY. A NEGA TIVE REPORT MAY REINFORCE THE CLINICAL IMPRESSION. ADENOSIS AND DENSE BREASTS MAY OBSCURE AN UNDERLY ING NEOPLASM. Reported By:
== END ==
LOC: RAD 12:46
PROVIDERS: ATTEND Nurse Practitioner Family
DX: N64.4 Mastodynia (principal)
CPT/HCPCS: 77066

== ENCOUNTER 2017-08-02 07:15 | Day surgery (SDC) | payer BC ==
[2017-08-02] MEDS ORDERED: LR 1000 ML IV 1,000 ML IV ONE (07:27)
[2017-08-02] MEDS ORDERED: ANCEF VIAL 1 GM ONE (07:28)
[2017-08-02] MEDS ORDERED: NS 100 ML IV 100 ML IV ONE (07:32)
[2017-08-02] MEDS ORDERED: FENTANYL INJ 100 mcg ONE (08:15)
[2017-08-02] MEDS ORDERED: XYLOCAINE 1% and EPINEPHRINE 1:100,000 ONE (08:51)
[2017-08-02] MEDS ORDERED: MARCAINE 0.25% INJ ONE (08:52)
[2017-08-02] MEDS ORDERED: NS IRRIGATION 1000 ML 500 ML IR ONE (09:07)
[2017-08-02] MEDS ORDERED: REGLAN INJ 10 MG VIAL IVP PRN (09:46)
[2017-08-02] MEDS ORDERED: PHENERGAN INJ 25 MG IVP PRN (09:46)
[2017-08-02] MEDS ORDERED: BENADRYL INJ 50 MG VIAL IVP PRN (09:46)
[2017-08-02] MEDS ORDERED: ZOFRAN INJ 4 MG VIAL IVP PRN (09:46)
[2017-08-02] MEDS: DILAUDID INJ IVP PRN ×2 (09:55→10:00)
[2017-08-02] MEDS ORDERED: NEOSTIGMINE INJ ONE (10:33)
[2017-08-02] MEDS ORDERED: ROBINUL ONE (10:33)
[2017-08-02] MEDS ORDERED: NORCURON INJ 10 MG VIAL ONE (10:33)
[2017-08-02] MEDS ORDERED: ULTANE GAS IN ONE (10:33)
[2017-08-02] MEDS ORDERED: VERSED ONE (10:33)
[2017-08-02] MEDS ORDERED: DIPRIVAN VIAL ONE (10:33)
--- NOTE | 2017-08-02 10:34 | OR.GENERIC ---
Post-Op Note Generic - Post-Op Note Operative Report: Operative Report Date of Operation: August 02, 2017 Pre-Operative Diagnosis: Left mastodynia. Post-Operative Diagnosis: Left mastodynia. Procedure: Incisional biopsy of left breast tissue (2 oclock approximately 6 cm from nipple-areolar complex). Surgeon: Carlos Enrique Santamaria MD Polish Maker: Ghazal Crockett CRNA Specimen: Left breast tissue at 2 oclock. Estimated blood loss: Minimal. Complications: None. Summary: The patient is a 62 year old female who presented to her primary care physician with a persistent left breast pain at approximately 2 oclock. Previous work- up was negative. The patient has a family history of breast cancer. The patient was offered incisional biopsy at the site of pain. The risk and benefits of the procedure including difficulty with anesthesia, bleeding, infection, recurrence, scar formation, as well as nerve injury were discussed with the patient. The patient understood these risks and requested the procedure. On August 02, 2017, the patient was brought to the operative theatre and placed in the supine position. A time-out was performed verifying the patient and procedure. After satisfactory induction of monitored anesthesia care, the left breast was prepped and draped in the usual sterile fashion. The area was identified at 2 oclock approximately 6 cm from the NAC. The area was marked and local anesthetic infiltrated around the lesion. A transverse incision was made. Subcutaneous fat was removed and sent to pathology. No mass or lesion was identified. Breast tissue was then excised sharply and sent to pathology. Breast tissue deep to the first sample was removed with electrocautery and sent to pathology. An additional portion of breast tissue was removed medially using electrocautery and sent to pathology. He wound was irrigated and bleeding controlled using electrocautery. The dermis was re-approximated using inverted, interrupted 3-0 Vicryl sutures and the skin edges re-approximated using a running 4-0 Monocryl stitch. Mastisol and steri-strips were placed. At this point, a sterile dressing was placed. The patient was awakened and taken to the recovery room in stable condition. There were no complications. All counts were correct.
[2017-08-02 11:07] VITALS: BP 116/65
== END 2017-08-02 11:10 | disposition home or self-care (01) | DRG 585 ==
LOC: SURG1 07:15
PROVIDERS: ATTEND Student in an Organized Health Care Education/Training Program
PROC: 0HBU0ZX Excision of Left Breast, Open Approach, Diagnostic (ICD-10-PCS; principal; 2017-08-02 09:15)
DX: N64.4 Mastodynia (principal); N60.82 Other benign mammary dysplasias of left breast
CPT/HCPCS: A4216; A4222; S0020; J0690; J1170; J2001; J2250; J2405; J2710; J3010; J3490; J7120

== ENCOUNTER 2017-10-02 04:01 | Observation (INO) | payer BC ==
[2017-10-02 04:10] VITALS: BMI 26.2
[2017-10-02] MEDS ORDERED: NIFEDIPINE CAP 10 MG PO ONE (04:35)
[2017-10-02] MEDS ORDERED: ANTIVERT TAB 25 MG PO ONE (04:35)
[2017-10-02] MEDS ORDERED: ZOFRAN INJ 4 MG VIAL IVP ONE (04:35)
[2017-10-02] MEDS ORDERED: ANTIVERT TAB 25 MG ONE (04:37)
[2017-10-02] MEDS ORDERED: ZOFRAN TAB 4 MG ONE (04:37)
--- NOTE | 2017-10-02 04:37 | DR.GENAD ---
HPI - PCP Primary Care Physician: ike - HPI Comment HPI Comment: HISTORY BELOW. - Complaint/Symptoms Chief Complaint Doctors Comments: WOKE UP AT HOME TO USE BATHROOM. BECAME DIZZY AND STATED SPINNING WAS ATAXIC AND NAUSEATED. WAS UNABLE TO WALK FOR FARE OF FALLING. EMS CALLED AND HERE IN ED FOR EVALUATION. DENIES CHEST PAIN. Chief Complaint:: Patient states she got up to go to the bathroom and was very dizzy and nauseous. Patient reports she had the flu last week and finished a course of Tamiflu and oral antibiotics. - Nurses notes reviewed Nurses Notes Review: Yes - Source History Provided: Patient - Mode of Arrival Mode of Arrival: EMS - Timing Onset of Chief Complaint: 10/02/17 Came on: Suddenly - Duration Duration: Constant Duration: Days - Severity Severity: Moderate PMH - PMH Past Medical History: Yes Past Medical History: Hypertension Past Surgical History: No Surgical History: Hysterectomy, Ortho Surgery - Family History History of Family Medical Conditions: Yes Family Medical History: Heart Failure, Hypertension - Social History Type of Tobacco Use: None Alcohol Use: None Do you use any recreational Drugs:: No Lives Where: Home - infectious screening In the last 2 months have you had wt loss of >10#?: NO Have you had fever, night sweats or hemotysis?: No Have you traveled outside the country in the last 6 months?: No Isolation: Standard ROS - Review of Systems Constitutional: Weakness, Fatigue. negative: Chills, Fever Eyes: negative: Eye Pain, Discharge ENTM: No Symptoms Reported. negative: Ear Pain, Nose Discharge, Nose Congestion , Throat Pain Respiratoy: No Symptoms Reported Cardiovascular: No Symptoms Reported Gastrointestinal/Abdominal: Nausea Genitourinary: No Symptoms Reported Neurological: Headache, Weakness, Dizziness, Other (ATXIA) Musculoskeletal: Muscle Pain Integumentary: No Symptoms Reported Hematologic/Lymphatic: No Symptoms Reported Endocrine: No Symptoms Reported All Other Systems: Reviewed and Negative PE - Vital Signs Vitals: Temperature 97.8 F Pulse Rate [Left] 62 Pulse Rate 60 Respiratory Rate 17 Blood Pressure [Left Arm] 147/73 Blood Pressure [Right Arm] 141/65 Blood Pressure 216/98 O2 Sat by Pulse Oximetry 97 - General Limitations: No Limitations General Appearance: Alert - Head Head Exam: Normal Inspection - Eyes Eye exam: Normal Appearance - ENT ENT Exam: Normal External Ear Exam External Ear Exam: Normal External Inspection TM/Canal Exam: Bilateral Normal Nose Exam: Normal Nose Exam Mouth Exam: Normal Inspection Throat Exam: Normal Inspection - Neck Neck Exam: Trachea Midline - Chest Chest Inspection: Symmetric Chest Wall Rise - Respiratory Respiratory Exam: Normal Lung Sounds Bilat Respiratory Exam: Bilateral Clear to Auscultation - Cardiovascular Cardiovascular Exam: Regular Rate, Normal Rhythm, Normal Heart Sounds - Abdominal Exam Abdominal Exam: Normal Bowel Sounds, Soft. negative: Tenderness - Extremities Extremities Exam: Normal Inspection - Back Back Exam: Normal Inspection - Neurologic Neurological Exam: Alert, Oriented X3, CN II-XII Intact, Reflexes Normal. negative: Motor Sensory Deficit - Psychiatric Psychiatric Exam: Normal Affect, Normal Mood - Skin Skin Exam: Normal Color MDM - Additional Information Additional Information Obtained From: Family - Differential Diagnosis Differential Diagnosis: VERTIGO, CVA, NC, SYNCOPAL EPISODE Course - Treatment Treatment: SEE ORDERS. - Consultation Consultation Comments: DISCUSS PATIENT WITH DR. MARK. HE WILL ADMIT PATIENT. - Education/Counseling Education/Counseling: Patient, Family, Education Educated On: Treatment, Diagnosis ROR - Labs Reviewed Laboratory Results Reviewed?: Yes Result Diagrams: 10/02/17 04:45 10/02/17 04:45 Laboratory: WBC 7.0 X10^3/uL (3.6-10.0) 10/02/17 04:45 RBC 4.56 X10^6/uL (3.5-5.4) 10/02/17 04:45 Hgb 13.7 g/dL (12.0-16.0) 10/02/17 04:45 Hct 39.5 % (36.0-47.0) 10/02/17 04:45 MCV 86.5 fL (80.0-100.0) 10/02/17 04:45 MCH 30.0 pg (27.0-34.0) 10/02/17 04:45 MCHC 34.7 g/dL (33.0-35.0) 10/02/17 04:45 RDW 12.8 % (11.6-16.5) 10/02/17 04:45 Plt Count 233 X10^3/uL (150.0-450.0) 10/02/17 04:45 MPV 10.4 fL (7.4-11.0) 10/02/17 04:45 Neut % 64.5 % (42.0-75.0) 10/02/17 04:45 Lymph % 26.4 % (21.0-51.0) 10/02/17 04:45 [place] % 5.5 % (0.0-13.0) 10/02/17 04:45 Eos % 2.4 % (0.9-2.9) 10/02/17 04:45 Baso % 1.2 % (0.2-1.0) H 10/02/17 04:45 Neut # 4.5 x10^3/uL (2.2-4.8) 10/02/17 04:45 Lymph # 1.8 X10^3/uL (1.3-2.9) 10/02/17 04:45 [place] # 0.4 x10^3/uL (0.3-0.8) 10/02/17 04:45 Eos # 0.2 x10^3/uL (0.0-0.2) 10/02/17 04:45 Baso # 0.1 X10^3/uL (0.0-0.1) 10/02/17 04:45 Absolute Nucleated RBC 0.0 /100WBC 10/02/17 04:45 Sodium 142 mmol/L (136-145) 10/02/17 04:45 Corrected Sodium 142 mmol/L (136-145) 10/02/17 04:45 Potassium 3.8 mmol/L (3.5-5.1) 10/02/17 04:45 Chloride 106 mmol/L (98-107) 10/02/17 04:45 Carbon Dioxide 26.5 mmol/L (21-32) 10/02/17 04:45 BUN 11 mg/dL (7-18) 10/02/17 04:45 Creatinine 0.97 mg/dL (0.55-1.02) 10/02/17 04:45 Est GFR (MDRD) Af Amer > 60 (>60) 10/02/17 04:45 Est GFR (MDRD) Non-Af > 60 (>60) 10/02/17 04:45 Glucose 115 mg/dL (65-99) H 10/02/17 04:45 Calcium 9.1 mg/dL (8.5-10.1) 10/02/17 04:45 Corrected Calcium TNP 10/02/17 04:45 Total Bilirubin 0.40 mg/dL (0.2-1.0) 10/02/17 04:45 AST 25 Units/L (15-37) 10/02/17 04:45 ALT 24 Units/L (12-78) 10/02/17 04:45 Alkaline Phosphatase 91 Units/L (46-116) 10/02/17 04:45 Creatine Kinase 103 Units/L (26-192) 10/02/17 04:45 CK-MB (CK-2) < 1.0 ng/mL (0-4.0) 10/02/17 04:45 CK/CKMB % Calc 1.0 % (<4) 10/02/17 04:45 Troponin I < 0.02 ng/mL (0-1.5) 10/02/17 04:45 Total Protein 7.6 g/dL (6.4-8.2) 10/02/17 04:45 Albumin 3.6 g/dL (3.4-5.0) 10/02/17 04:45 Globulin 4.0 g/dL (2.5-4.5) 10/02/17 04:45 Albumin/Globulin Ratio 0.9 Ratio (1.1-2.1) L 10/02/17 04:45 Specimen Type Clean catch urine 10/02/17 06:11 Urine Color Yellow (YELLOW) 10/02/17 06:11 Urine Appearance Clear (CLEAR) 10/02/17 06:11 Urine pH 7.0 (5.0 - 8.0) 10/02/17 06:11 Ur Specific [place] 1.010 (1.000-1.030) 10/02/17 06:11 Urine Protein Negative (NEGATIVE) 10/02/17 06:11 Urine Glucose (UA) Negative (NEGATIVE) 10/02/17 06:11 Urine Ketones Negative (NEGATIVE) 10/02/17 06:11 Urine Occult Blood Negative (NEGATIVE) 10/02/17 06:11 Urine Nitrite Negative (NEGATIVE) 10/02/17 06:11 Urine Bilirubin Negative (NEGATIVE) 10/02/17 06:11 Urine Urobilinogen Normal (NORMAL) 10/02/17 06:11 Ur Leukocyte Esterase Negative (NEGATIVE) 10/02/17 06:11 Urine RBC 0-3 /HPF (NEGATIVE) 10/02/17 06:11 Urine WBC 0-3 /HPF (NEGATIVE) 10/02/17 06:11 Ur Squamous Epith Cells Rare /HPF (NEGATIVE) 10/02/17 06:11 Urine Bacteria Negative /HPF (NEGATIVE) 10/02/17 06:11 Ur Culture Indicated? No/not indicated 10/02/17 06:11 - XRAY XRAY Interpreted by: Radiologist XRAY Findings: REPORT DISCUSS WITH PATIENT. - EKG Rhythm: NSR (EKG NOTED.) - Diagnosis Discharge Problem: Dizziness, Ataxia, Vertigo Episode of syncope Qualifiers: Syncope type: unspecified Qualified Code(s): R55 - Syncope and collapse - Discharge Plan Disposition: ADMITTED INPATIENT Condition: Stable - Follow ups/Referrals - Instructions
[2017-10-02] MEDS ORDERED: ZOFRAN INJ 4 MG VIAL ONE (04:38)
[2017-10-02] MEDS ORDERED: NIFEDIPINE CAP 10 MG ONE (04:42)
[2017-10-02 05:00] LABS: BASOPHILS # (AUTO) 0.1 X10^3/uL (0.0-0.1); BASOPHILS % (AUTO) 1.2 % (0.2-1.0); EOSINOPHILS # (AUTO) 0.2 x10^3/uL (0.0-0.2); EOSINOPHILS % (AUTO) 2.4 % (0.9-2.9); HEMATOCRIT 39.5 % (36.0-47.0); HEMOGLOBIN 13.7 g/dL (12.0-16.0); LYMPHOCYTES # (AUTO) 1.8 X10^3/uL (1.3-2.9); LYMPHOCYTES % (AUTO) 26.4 % (21.0-51.0); MEAN CORPUSCULAR HGB CONC 34.7 g/dL (33.0-35.0); MEAN CORPUSCULAR VOLUME 86.5 fL (80.0-100.0); MEAN PLATELET VOLUME 10.4 fL (7.4-11.0); MONOCYTES # (AUTO) 0.4 x10^3/uL (0.3-0.8); MONOCYTES % (AUTO) 5.5 % (0.0-13.0); NEUTROPHILS # (AUTO) 4.5 x10^3/uL (2.2-4.8); NEUTROPHILS % (AUTO) 64.5 % (42.0-75.0); PLATELET COUNT 233 X10^3/uL (150.0-450.0); RED BLOOD COUNT 4.56 X10^6/uL (3.5-5.4); RED CELL DISTRIBUTION WIDTH 12.8 % (11.6-16.5)
[2017-10-02 05:13] LABS: BLOOD UREA NITROGEN 11 mg/dL (7-18); CALCIUM 9.1 mg/dL (8.5-10.1); CARBON DIOXIDE 26.5 mmol/L (21-32); CHLORIDE 106 mmol/L (98-107); COR NA(FOR HYPERGLY) 142 mmol/L (136-145); CREATININE 0.97 mg/dL (0.55-1.02); SODIUM 142 mmol/L (136-145); TROPONIN I < 0.02 ng/mL (0-1.5); eGFR BLACK RACES > 60 (>60); eGFR NON BLACK RACES > 60 (>60)
[2017-10-02 05:17] LABS: ALANINE AMINOTRANSFERASE 24 Units/L (12-78); ALBUMIN 3.6 g/dL (3.4-5.0); ALKALINE PHOSPHATASE 91 Units/L (46-116); ASPARTATE AMINO TRANSFERASE 25 Units/L (15-37); CREATINE KINASE 103 Units/L (26-192); CREATINE KINASE MB < 1.0 ng/mL (0-4.0); TOTAL PROTEIN 7.6 g/dL (6.4-8.2)
--- NOTE | 2017-10-02 05:42 | CT ---
CT brain without contrast Indication: Headache with dizziness and nausea Comparison: None available Technique: Multiple axial images of the brain were obtained from the skull base to the vertex without administra tion of IV contrast. Findings: No acute intraparenchymal hemorrhage or mass can be identified. No extra-axial fluid collections are seen. No alteration in the attenuation of the brain parenchyma can be identified to suggest acute o r subacute ischemic change. The ventricular system is symmetric and nondilated. The extracranial st ructures are grossly unremarkable. IMPRESSION: 1. No acute intracranial process is identified. Reported By:
--- NOTE | 2017-10-02 05:46 | RAD ---
AP chest Indication: Headache with nausea. Comparison: 06/13/2017. Findings: Lungs are clear the heart size is normal. No pleural effusion pneumothorax. No acute oss eous abnormality. Trachea is midline. Impression: No acute cardiopulmonary abnormality or change from prior exam. Reported By:
[2017-10-02 06:20] LABS: BILIRUBIN,URINE NEGATIVE (NEGATIVE); BLOOD/HEMOGLOBIN,URINE NEGATIVE (NEGATIVE); GLUCOSE, URINE NEGATIVE (NEGATIVE); KETONES,URINE NEGATIVE (NEGATIVE); LEUKOCYTE ESTERASE ,URINE NEGATIVE (NEGATIVE); NITRITES,URINE NEGATIVE (NEGATIVE); PROTEIN,URINE NEGATIVE (NEGATIVE); UROBILINOGEN,URINE NORMAL (NORMAL)
[2017-10-02 06:27] LABS: APPEARANCE,URINE CLEAR (CLEAR); BACTERIA,URINE NEGATIVE /HPF (NEGATIVE); COLOR,URINE YELLOW (YELLOW); RBC,URINE 0-3 /HPF (NEGATIVE); SQUAMOUS EPITHELIAL CELL,UR RARE /HPF (NEGATIVE)
[2017-10-02] MEDS ORDERED: PERCOCET TAB 5/325 MG PO PRN (07:37)
[2017-10-02] MEDS: PROTONIX TAB 40 MG PO SCH (10:43)
[2017-10-02] MEDS: ZESTRIL TAB 5 MG PO SCH (10:43)
[2017-10-02 11:37] LABS: CREATINE KINASE 101 Units/L (26-192); CREATINE KINASE MB < 1.0 ng/mL (0-4.0); TROPONIN I < 0.02 ng/mL (0-1.5)
[2017-10-02] MEDS ORDERED: ZOFRAN INJ 4 MG VIAL 16 MG, ATIVAN INJ 2 MG VIAL 1 MG, DECADRON INJ 10 MG in NS 50 ML I... IV ONE (13:37)
--- NOTE | 2017-10-02 13:42 | DR.H&P ---
H&P - History & Physical for Day of: H&P Date: 10/02/17 - Chief Complaint Chief Complaint: DIZZINESS, NAUSEA, WEAKNESS - Allergies Allergies/Adverse Reactions: Allergies Allergy/AdvReac Type Severity Reaction Status Date / Time codeine Allergy Verified 10/02/17 04:03 - History of Present Illness History of Present Illness: patient is a 62-year-old white female who was an ER admission after presenting with complaints of severe dizziness with nausea and weakness. Patient stated she was brought in by EMS she was unable to ambulate to the restroom due to severe nausea and weakness. Patient does have a history of hypertension. Patient states she was recently treated for the flu and thought she was improved from flulike illness. Patient had a CT of her head in the ER which was negative for acute findings. - Past Medical History Past Medical History: Anxiety, GERD, Hypertension Additional Medical History: fibrocystic breast disease - Past Surgical History Surgical History: Hysterectomy, Ortho Surgery - Family History Family Medical History: Diabetes Mellitus, Cancer, [place], Heart Failure, Hypertension - Social History Does patient currently use any type of tobacco product: No Have you used tobacco products in the last 12 months: No Type of Tobacco Use: None Does any household member use tobacco: No Alcohol Use: None Drug Use: None - Medications Home Medications: Gabapentin [Gabapentin] 100 mg PO TID 10/02/17 [History Confirmed 10/02/17] - Review of Systems Constitutional: Weakness Eyes: No Symptoms Reported ENT: No Symptoms Reported Respiratory: No Symptoms Reported Cardiovascular: No Symptoms Reported Gastrointestinal: Nausea Genitourinary: No Symptoms Reported Musculoskeletal: No Symptoms Reported Skin: No Symptoms Reported Neurological: Other (dizziness) - Physical Exam Vital Signs: Temperature 97.8 F Pulse Rate [Left] 62 Pulse Rate 60 Respiratory Rate 17 Blood Pressure [Left Arm] 147/73 Blood Pressure [Right Arm] 141/65 Blood Pressure 216/98 O2 Sat by Pulse Oximetry 97 Oriented: Normal Eyes: Normal Ear: Normal Nose: Normal Throat: Normal Respiratory: RLL Diminished, LLL Diminished Cardiovascular: Normal : Normal Auscultation: Bowel Sounds: Normal Palpation: Normal Tenderness: Normal Skin: Normal Musculoskeletal: Normal Psychiatric: Anxiety Speech Pattern: Clear, Appropriate - Assessment/Plan (1) Syncopal vertigo Status: Acute Plan: PT ADMITTED TO ICU FOR EVALUATION AND TREATMENT OF NEW ONSET DIZZNIESS, WEAKNESS. CT HEAD ON ADMISSION, BP MONITORING. SERIAL CARDIAC ENZYMES. SYMPTOMATIC TREATMENT. RESUME HOME MEDS (2) Ataxia Status: Acute (3) Hypertension Status: Acute (4) Acute serous otitis media Status: Acute Plan: IV ROCEPHIN
[2017-10-02] MEDS ORDERED: NS 250 ML IV 250 ML IV ONE (15:09)
[2017-10-02] MEDS: ANTIVERT TAB 25 MG PO PRN (15:12)
[2017-10-02] MEDS: ROCEPHIN 1 GM IV PREMIX 1 GM/50 ML IV.SOLN. IV SCH (15:56)
[2017-10-02 17:29] LABS: CKMB % 1.1 % (<4); CREATINE KINASE 92 Units/L (26-192); CREATINE KINASE MB < 1.0 ng/mL (0-4.0); TROPONIN I < 0.02 ng/mL (0-1.5)
[2017-10-02] MEDS: KLONOPIN TAB 0.5 MG PO SCH (21:00)
[2017-10-03 06:22] LABS: BASOPHILS # (AUTO) 0.1 X10^3/uL (0.0-0.1); BASOPHILS % (AUTO) 0.5 % (0.2-1.0); HEMATOCRIT 40.6 % (36.0-47.0); HEMOGLOBIN 13.9 g/dL (12.0-16.0); LYMPHOCYTES # (AUTO) 1.4 X10^3/uL (1.3-2.9); LYMPHOCYTES % (AUTO) 10.9 % (21.0-51.0); MEAN CORPUSCULAR HGB CONC 34.2 g/dL (33.0-35.0); MEAN CORPUSCULAR VOLUME 87.8 fL (80.0-100.0); MEAN PLATELET VOLUME 11.4 fL (7.4-11.0); MONOCYTES # (AUTO) 0.3 x10^3/uL (0.3-0.8); NEUTROPHILS # (AUTO) 11.2 x10^3/uL (2.2-4.8); NEUTROPHILS % (AUTO) 86.6 % (42.0-75.0); PLATELET COUNT 222 X10^3/uL (150.0-450.0); RED BLOOD COUNT 4.62 X10^6/uL (3.5-5.4); RED CELL DISTRIBUTION WIDTH 12.9 % (11.6-16.5)
[2017-10-03 06:52] LABS: ALANINE AMINOTRANSFERASE 27 Units/L (12-78); ALBUMIN 3.7 g/dL (3.4-5.0); ALKALINE PHOSPHATASE 88 Units/L (46-116); ASPARTATE AMINO TRANSFERASE 24 Units/L (15-37); BLOOD UREA NITROGEN 15 mg/dL (7-18); CALCIUM 9.8 mg/dL (8.5-10.1); CARBON DIOXIDE 25.9 mmol/L (21-32); CHLORIDE 104 mmol/L (98-107); CHOL/HDL RATIO 5.8 (0.0-5.0); CHOLESTEROL 273 mg/dL (0-200); COR NA(FOR HYPERGLY) 141 mmol/L (136-145); CREATININE 1.16 mg/dL (0.55-1.02); HDL CHOLESTEROL 47 mg/dL (40-60); SODIUM 141 mmol/L (136-145); TOTAL PROTEIN 8.1 g/dL (6.4-8.2); TRIGLYCERIDES 96 mg/dL (0-150); eGFR BLACK RACES > 60 (>60); eGFR NON BLACK RACES 50 (>60)
[2017-10-03] MEDS: PROTONIX TAB 40 MG PO SCH (08:25)
[2017-10-03] MEDS: ECOTRIN TAB 325 MG PO SCH (08:25)
[2017-10-03] MEDS: ANTIVERT TAB 25 MG PO PRN ×2 (08:25→20:48)
[2017-10-03] MEDS: ZESTRIL TAB 5 MG PO SCH (08:26)
[2017-10-03] MEDS: ROCEPHIN 1 GM IV PREMIX 1 GM/50 ML IV.SOLN. IV SCH (08:26)
[2017-10-03] MEDS ORDERED: ZOFRAN INJ 4 MG VIAL 16 MG, ATIVAN INJ 2 MG VIAL 1 MG, DECADRON INJ 10 MG in NS 50 ML I... IV ONE (09:22)
--- NOTE | 2017-10-03 13:13 | PCM.PROG ---
Progress Note - Progress Note for Day of Date: 10/03/17 - Subjective Subjective: DIZZINESS, LIGHT HEADED. IMPROVED WEAKNESS AND NAUSEA, MILD NON PRODUCTIVE COUGH - Past Medical Family Social History Past Med/Fam/Surg Hx: No changes since H&P Allergies: Allergies codeine Allergy (Verified 10/02/17 04:03) - Review of Systems ROS: No change since H&P - Vital Signs and I&O's Vital Signs: Temperature 98.4 F Pulse Rate [Left] 56 Pulse Rate 60 Respiratory Rate 20 Blood Pressure [Left Arm] 188/80 Blood Pressure [Right Arm] 109/53 Blood Pressure 216/98 O2 Sat by Pulse Oximetry 96 Intake and Output: Intake & Output 10/01/17 10/02/17 10/03/17 10/04/17 11:59 11:59 11:59 11:59 Intake Total 868 Balance 868 - Physical Exam Oriented: Normal Eyes: Normal Ear: Normal Nose: Normal Throat: Normal Respiratory: Diminished Cardiovascular: Normal : Normal Auscultation: Bowel Sounds: Normal Tenderness: Normal Skin: Normal Musculoskeletal: Normal Psychiatric: Anxiety Speech Pattern: Clear, Appropriate - Laboratory and Diagnostics Result Diagrams: 10/03/17 05:40 10/03/17 05:40 Labs: Laboratory WBC 13.0 X10^3/uL (3.6-10.0) H 10/03/17 05:40 RBC 4.62 X10^6/uL (3.5-5.4) 10/03/17 05:40 Hgb 13.9 g/dL (12.0-16.0) 10/03/17 05:40 Hct 40.6 % (36.0-47.0) 10/03/17 05:40 MCV 87.8 fL (80.0-100.0) 10/03/17 05:40 MCH 30.0 pg (27.0-34.0) 10/03/17 05:40 MCHC 34.2 g/dL (33.0-35.0) 10/03/17 05:40 RDW 12.9 % (11.6-16.5) 10/03/17 05:40 Plt Count 222 X10^3/uL (150.0-450.0) 10/03/17 05:40 MPV 11.4 fL (7.4-11.0) H 10/03/17 05:40 Neut % 86.6 % (42.0-75.0) H 10/03/17 05:40 Lymph % 10.9 % (21.0-51.0) L 10/03/17 05:40 [place] % 2.0 % (0.0-13.0) 10/03/17 05:40 Eos % 0.0 % (0.9-2.9) L 10/03/17 05:40 Baso % 0.5 % (0.2-1.0) 10/03/17 05:40 Neut # 11.2 x10^3/uL (2.2-4.8) H 10/03/17 05:40 Lymph # 1.4 X10^3/uL (1.3-2.9) 10/03/17 05:40 [place] # 0.3 x10^3/uL (0.3-0.8) 10/03/17 05:40 Eos # 0.0 x10^3/uL (0.0-0.2) 10/03/17 05:40 Baso # 0.1 X10^3/uL (0.0-0.1) 10/03/17 05:40 Absolute Nucleated RBC 0.0 /100WBC 10/03/17 05:40 INR Target Range - 10/03/17 05:40 INR 0.96 (0.8-1.3) 10/03/17 05:40 PTT 28.3 SECONDS (22.9-36.5) 10/03/17 05:40 PTT Comment - 10/03/17 05:40 Sodium 141 mmol/L (136-145) 10/03/17 05:40 Corrected Sodium 141 mmol/L (136-145) 10/03/17 05:40 Potassium 4.5 mmol/L (3.5-5.1) 10/03/17 05:40 Chloride 104 mmol/L (98-107) 10/03/17 05:40 Carbon Dioxide 25.9 mmol/L (21-32) 10/03/17 05:40 BUN 15 mg/dL (7-18) 10/03/17 05:40 Creatinine 1.16 mg/dL (0.55-1.02) H 10/03/17 05:40 Est GFR (MDRD) Af Amer > 60 (>60) 10/03/17 05:40 Est GFR (MDRD) Non-Af 50 (>60) L 10/03/17 05:40 Glucose 118 mg/dL (65-99) H 10/03/17 05:40 Calcium 9.8 mg/dL (8.5-10.1) 10/03/17 05:40 Corrected Calcium TNP 10/03/17 05:40 Magnesium 2.0 mg/dL (1.7-2.9) 10/03/17 05:40 Total Bilirubin 0.30 mg/dL (0.2-1.0) 10/03/17 05:40 AST 24 Units/L (15-37) 10/03/17 05:40 ALT 27 Units/L (12-78) 10/03/17 05:40 Alkaline Phosphatase 88 Units/L (46-116) 10/03/17 05:40 Creatine Kinase 92 Units/L (26-192) 10/02/17 16:43 CK-MB (CK-2) < 1.0 ng/mL (0-4.0) 10/02/17 16:43 CK/CKMB % Calc 1.1 % (<4) 10/02/17 16:43 Troponin I < 0.02 ng/mL (0-1.5) 10/02/17 16:43 Total Protein 8.1 g/dL (6.4-8.2) 10/03/17 05:40 Albumin 3.7 g/dL (3.4-5.0) 10/03/17 05:40 Globulin 4.4 g/dL (2.5-4.5) 10/03/17 05:40 Albumin/Globulin Ratio 0.8 Ratio (1.1-2.1) L 10/03/17 05:40 Triglycerides 96 mg/dL (0-150) 10/03/17 05:40 Cholesterol 273 mg/dL (0-200) H 10/03/17 05:40 LDL Cholesterol, Calc 207 mg/dL (0-100) H 10/03/17 05:40 HDL Cholesterol 47 mg/dL (40-60) 10/03/17 05:40 Cholesterol/HDL Ratio 5.8 (0.0-5.0) H 10/03/17 05:40 Specimen Type Clean catch urine 10/02/17 06:11 Urine Color Yellow (YELLOW) 10/02/17 06:11 Urine Appearance Clear (CLEAR) 10/02/17 06:11 Urine pH 7.0 (5.0 - 8.0) 10/02/17 06:11 Ur Specific [place] 1.010 (1.000-1.030) 10/02/17 06:11 Urine Protein Negative (NEGATIVE) 10/02/17 06:11 Urine Glucose (UA) Negative (NEGATIVE) 10/02/17 06:11 Urine Ketones Negative (NEGATIVE) 10/02/17 06:11 Urine Occult Blood Negative (NEGATIVE) 10/02/17 06:11 Urine Nitrite Negative (NEGATIVE) 10/02/17 06:11 Urine Bilirubin Negative (NEGATIVE) 10/02/17 06:11 Urine Urobilinogen Normal (NORMAL) 10/02/17 06:11 Ur Leukocyte Esterase Negative (NEGATIVE) 10/02/17 06:11 Urine RBC 0-3 /HPF (NEGATIVE) 10/02/17 06:11 Urine WBC 0-3 /HPF (NEGATIVE) 10/02/17 06:11 Ur Squamous Epith Cells Rare /HPF (NEGATIVE) 10/02/17 06:11 Urine Bacteria Negative /HPF (NEGATIVE) 10/02/17 06:11 Ur Culture Indicated? No/not indicated 10/02/17 06:11 - Plan (1) Syncopal vertigo Status: Acute Plan: CT HEAD ON ADMISSION, BP MONITORING. SERIAL CARDIAC ENZYMES AND EKG REVIEWED WITH PT. SYMPTOMATIC TREATMENT. RESUME HOME MEDS (2) Ataxia Status: Acute (3) Hypertension Status: Acute (4) Acute serous otitis media Status: Acute Plan: IV ROCEPHIN (5) Dizziness Status: Acute Plan: CAROTID ARTERY US. BP MONITORING (6) Vertigo Status: Acute Plan: ANTIVERT, PT FOR ARLEEN (7) Hyperlipidemia Status: Acute Plan: STATIN
[2017-10-03] MEDS: ZOCOR TAB 10 MG PO SCH ×2 (17:56→20:47)
[2017-10-03] MEDS: KLONOPIN TAB 0.5 MG PO SCH (21:00)
[2017-10-04 06:17] LABS: BASOPHILS # (AUTO) 0.1 X10^3/uL (0.0-0.1); BASOPHILS % (AUTO) 1.1 % (0.2-1.0); EOSINOPHILS # (AUTO) 0.2 x10^3/uL (0.0-0.2); EOSINOPHILS % (AUTO) 1.5 % (0.9-2.9); HEMATOCRIT 38.4 % (36.0-47.0); HEMOGLOBIN 13.3 g/dL (12.0-16.0); LYMPHOCYTES # (AUTO) 3.2 X10^3/uL (1.3-2.9); MEAN CORPUSCULAR HEMOGLOBIN 30.2 pg (27.0-34.0); MEAN CORPUSCULAR HGB CONC 34.6 g/dL (33.0-35.0); MEAN CORPUSCULAR VOLUME 87.3 fL (80.0-100.0); MEAN PLATELET VOLUME 10.9 fL (7.4-11.0); MONOCYTES # (AUTO) 0.5 x10^3/uL (0.3-0.8); MONOCYTES % (AUTO) 4.2 % (0.0-13.0); NEUTROPHILS # (AUTO) 7.1 x10^3/uL (2.2-4.8); NEUTROPHILS % (AUTO) 64.2 % (42.0-75.0); PLATELET COUNT 217 X10^3/uL (150.0-450.0)
[2017-10-04 06:52] LABS: ALANINE AMINOTRANSFERASE 22 Units/L (12-78); ALBUMIN 3.4 g/dL (3.4-5.0); ALKALINE PHOSPHATASE 80 Units/L (46-116); ASPARTATE AMINO TRANSFERASE 20 Units/L (15-37); BLOOD UREA NITROGEN 17 mg/dL (7-18); CALCIUM 8.9 mg/dL (8.5-10.1); CARBON DIOXIDE 26.6 mmol/L (21-32); CHLORIDE 106 mmol/L (98-107); CREATININE 1.19 mg/dL (0.55-1.02); SODIUM 144 mmol/L (136-145); TOTAL PROTEIN 7.1 g/dL (6.4-8.2); eGFR BLACK RACES 59 (>60); eGFR NON BLACK RACES 49 (>60)
[2017-10-04] MEDS: ROCEPHIN 1 GM IV PREMIX 1 GM/50 ML IV.SOLN. IV SCH (08:37)
[2017-10-04] MEDS: ECOTRIN TAB 325 MG PO SCH (08:42)
[2017-10-04] MEDS: PROTONIX TAB 40 MG PO SCH (08:42)
[2017-10-04] MEDS: ZESTRIL TAB 5 MG PO SCH (08:43)
[2017-10-04] MEDS ORDERED: MILK OF MAGNESIA PO PRN (14:19)
[2017-10-04] MEDS: COLACE CAP 100 MG PO PRN (16:30)
--- NOTE | 2017-10-04 18:52 | VAS ---
HISTORY: Ataxia. Study: Carotid Doppler. Comparison: None. Technique: Multiple caraballo scale and color flow Doppler images of the right and left carotid arterial s ystem were obtained. The vertebral arterial system was evaluated as well. Findings: Normal color flow Doppler is seen throughout the right and left carotid arterial system. Maximum inte rnal carotid artery velocity of 95 centimeters/second on the right and maximum internal carotid arter y velocity on the left of 88 centimeters/second. Right ICA/CCA ratio of 1.8 and left ICA/CCA ratio 1. 6. No hemodynamically significant stenosis is seen based on velocity criteria. The right and left ve rtebral arteries demonstrate antegrade flow. IMPRESSION: No hemodynamically significant stenosis. Reported By:
[2017-10-04] MEDS: ZOCOR TAB 10 MG PO SCH (21:18)
[2017-10-04] MEDS: KLONOPIN TAB 0.5 MG PO SCH (21:18)
[2017-10-05 06:28] LABS: BASOPHILS % (AUTO) 0.3 % (0.2-1.0); EOSINOPHILS # (AUTO) 0.2 x10^3/uL (0.0-0.2); EOSINOPHILS % (AUTO) 2.3 % (0.9-2.9); HEMATOCRIT 42.9 % (36.0-47.0); HEMOGLOBIN 14.8 g/dL (12.0-16.0); LYMPHOCYTES # (AUTO) 3.5 X10^3/uL (1.3-2.9); LYMPHOCYTES % (AUTO) 32.8 % (21.0-51.0); MEAN CORPUSCULAR HEMOGLOBIN 30.3 pg (27.0-34.0); MEAN CORPUSCULAR HGB CONC 34.6 g/dL (33.0-35.0); MEAN CORPUSCULAR VOLUME 87.7 fL (80.0-100.0); MEAN PLATELET VOLUME 10.3 fL (7.4-11.0); MONOCYTES # (AUTO) 0.6 x10^3/uL (0.3-0.8); MONOCYTES % (AUTO) 5.6 % (0.0-13.0); NEUTROPHILS # (AUTO) 6.3 x10^3/uL (2.2-4.8); PLATELET COUNT 281 X10^3/uL (150.0-450.0); RED BLOOD COUNT 4.89 X10^6/uL (3.5-5.4); WHITE BLOOD COUNT 10.7 X10^3/uL (3.6-10.0)
[2017-10-05 06:49] LABS: ALANINE AMINOTRANSFERASE 32 Units/L (12-78); ALKALINE PHOSPHATASE 95 Units/L (46-116); ASPARTATE AMINO TRANSFERASE 26 Units/L (15-37); BLOOD UREA NITROGEN 18 mg/dL (7-18); CALCIUM 9.1 mg/dL (8.5-10.1); CARBON DIOXIDE 25.5 mmol/L (21-32); CHLORIDE 101 mmol/L (98-107); CREATININE 1.22 mg/dL (0.55-1.02); SODIUM 140 mmol/L (136-145); TOTAL PROTEIN 8.2 g/dL (6.4-8.2); eGFR BLACK RACES 57 (>60); eGFR NON BLACK RACES 47 (>60)
[2017-10-05] MEDS ORDERED: ZOFRAN INJ 4 MG VIAL 16 MG, ATIVAN INJ 2 MG VIAL 1 MG, DECADRON INJ 10 MG in NS 50 ML I... IV ONE (08:58)
[2017-10-05] MEDS: PROTONIX TAB 40 MG PO SCH (09:03)
[2017-10-05] MEDS: COLACE CAP 100 MG PO PRN (09:03)
[2017-10-05] MEDS: ZESTRIL TAB 5 MG PO SCH (09:03)
[2017-10-05] MEDS: ECOTRIN TAB 325 MG PO SCH (09:03)
[2017-10-05] MEDS: ROCEPHIN 1 GM IV PREMIX 1 GM/50 ML IV.SOLN. IV SCH (09:03)
[2017-10-05 12:50] VITALS: BP 156/73
--- NOTE | 2017-10-09 16:27 | PCM.DCPLAN ---
Discharge Summary - Admission Date Date of Admission: 10/02/17 - Discharge Date Discharge Date: 10/05/17 - Admission Diagnoses (1) Acute serous otitis media Status: Acute (2) Ataxia Status: Acute (3) Dizziness Status: Acute (4) Episode of syncope Status: Acute (5) Hypertension Status: Acute (6) Syncopal vertigo Status: Acute - Discharge Diagnoses Discharge Diagnosis: SAME ADMISSION DIAGNOSIS AND INCLUDE BRADYCARDIA - Discharge Medications Discharge Medications: Gabapentin [Gabapentin] 100 mg PO TID 10/02/17 [History] - Hospital Course Vital Signs: Temperature 98 F Pulse Rate [Left] 64 Pulse Rate 60 Respiratory Rate 16 Blood Pressure [Left Arm] 147/67 Blood Pressure [Right Arm] 156/73 Blood Pressure 216/98 O2 Sat by Pulse Oximetry 96 Latest Lab Results: Laboratory Last Values WBC 10.7 X10^3/uL (3.6-10.0) H 10/05/17 06:07 RBC 4.89 X10^6/uL (3.5-5.4) 10/05/17 06:07 Hgb 14.8 g/dL (12.0-16.0) 10/05/17 06:07 Hct 42.9 % (36.0-47.0) 10/05/17 06:07 MCV 87.7 fL (80.0-100.0) 10/05/17 06:07 MCH 30.3 pg (27.0-34.0) 10/05/17 06:07 MCHC 34.6 g/dL (33.0-35.0) 10/05/17 06:07 RDW 13.0 % (11.6-16.5) 10/05/17 06:07 Plt Count 281 X10^3/uL (150.0-450.0) 10/05/17 06:07 Plt Count Comment Cancelled 10/05/17 06:07 MPV 10.3 fL (7.4-11.0) 10/05/17 06:07 Neut % 59.0 % (42.0-75.0) 10/05/17 06:07 Lymph % 32.8 % (21.0-51.0) 10/05/17 06:07 [place] % 5.6 % (0.0-13.0) 10/05/17 06:07 Eos % 2.3 % (0.9-2.9) 10/05/17 06:07 Baso % 0.3 % (0.2-1.0) 10/05/17 06:07 Neut # 6.3 x10^3/uL (2.2-4.8) H 10/05/17 06:07 Lymph # 3.5 X10^3/uL (1.3-2.9) H 10/05/17 06:07 [place] # 0.6 x10^3/uL (0.3-0.8) 10/05/17 06:07 Eos # 0.2 x10^3/uL (0.0-0.2) 10/05/17 06:07 Baso # 0.0 X10^3/uL (0.0-0.1) 10/05/17 06:07 Absolute Nucleated RBC 0.1 /100WBC 10/05/17 06:07 Nucleated RBCs Cancelled 10/05/17 06:07 Atypical Lymphocytes Cancelled 10/05/17 06:07 Blast Cells Cancelled 10/05/17 06:07 Smudge Cells Cancelled 10/05/17 06:07 Toxic Granulation Cancelled 10/05/17 06:07 Dohle Bodies Cancelled 10/05/17 06:07 Shahbaz Rods Cancelled 10/05/17 06:07 Plt Clumps, EDTA Cancelled 10/05/17 06:07 Giant Platelets Cancelled 10/05/17 06:07 Plt Morphology Comment Cancelled 10/05/17 06:07 RBC Morphology Cancelled 10/05/17 06:07 Dimorphic RBCs Cancelled 10/05/17 06:07 Polychromasia Cancelled 10/05/17 06:07 Hypochromasia Cancelled 10/05/17 06:07 Poikilocytosis Cancelled 10/05/17 06:07 Basophilic Stippling Cancelled 10/05/17 06:07 Anisocytosis Cancelled 10/05/17 06:07 Microcytosis Cancelled 10/05/17 06:07 Macrocytosis Cancelled 10/05/17 06:07 Spherocytes Cancelled 10/05/17 06:07 Pappenheimer Bodies Cancelled 10/05/17 06:07 Sickle Cells Cancelled 10/05/17 06:07 Target Cells Cancelled 10/05/17 06:07 Tear Drop Cells Cancelled 10/05/17 06:07 Ovalocytes Cancelled 10/05/17 06:07 Stomatocytes Cancelled 10/05/17 06:07 Helmet Cells Cancelled 10/05/17 06:07 [place] Bodies Cancelled 10/05/17 06:07 [place] Rings Cancelled 10/05/17 06:07 Arina Cells Cancelled 10/05/17 06:07 Crenated Cell Cancelled 10/05/17 06:07 Acanthocytes (Spur) Cancelled 10/05/17 06:07 Rouleaux Cancelled 10/05/17 06:07 Schistocytes Cancelled 10/05/17 06:07 INR Target Range - 10/03/17 05:40 INR 0.96 (0.8-1.3) 10/03/17 05:40 PTT 28.3 SECONDS (22.9-36.5) 10/03/17 05:40 PTT Comment - 10/03/17 05:40 Sodium 140 mmol/L (136-145) 10/05/17 06:07 Corrected Sodium TNP 10/05/17 06:07 Potassium 4.0 mmol/L (3.5-5.1) 10/05/17 06:07 Chloride 101 mmol/L (98-107) 10/05/17 06:07 Carbon Dioxide 25.5 mmol/L (21-32) 10/05/17 06:07 BUN 18 mg/dL (7-18) 10/05/17 06:07 Creatinine 1.22 mg/dL (0.55-1.02) H 10/05/17 06:07 Est GFR (MDRD) Af Amer 57 (>60) L 10/05/17 06:07 Est GFR (MDRD) Non-Af 47 (>60) L 10/05/17 06:07 Glucose 104 mg/dL (65-99) H 10/05/17 06:07 Calcium 9.1 mg/dL (8.5-10.1) 10/05/17 06:07 Corrected Calcium TNP 10/05/17 06:07 Magnesium 2.0 mg/dL (1.7-2.9) 10/03/17 05:40 Total Bilirubin 0.50 mg/dL (0.2-1.0) 10/05/17 06:07 AST 26 Units/L (15-37) 10/05/17 06:07 ALT 32 Units/L (12-78) 10/05/17 06:07 Alkaline Phosphatase 95 Units/L (46-116) 10/05/17 06:07 Creatine Kinase 92 Units/L (26-192) 10/02/17 16:43 CK-MB (CK-2) < 1.0 ng/mL (0-4.0) 10/02/17 16:43 CK/CKMB % Calc 1.1 % (<4) 10/02/17 16:43 Troponin I < 0.02 ng/mL (0-1.5) 10/02/17 16:43 Total Protein 8.2 g/dL (6.4-8.2) 10/05/17 06:07 Albumin 4.0 g/dL (3.4-5.0) 10/05/17 06:07 Globulin 4.2 g/dL (2.5-4.5) 10/05/17 06:07 Albumin/Globulin Ratio 1.0 Ratio (1.1-2.1) L 10/05/17 06:07 Triglycerides 96 mg/dL (0-150) 10/03/17 05:40 Cholesterol 273 mg/dL (0-200) H 10/03/17 05:40 LDL Cholesterol, Calc 207 mg/dL (0-100) H 10/03/17 05:40 HDL Cholesterol 47 mg/dL (40-60) 10/03/17 05:40 Cholesterol/HDL Ratio 5.8 (0.0-5.0) H 10/03/17 05:40 Specimen Type Clean catch urine 10/02/17 06:11 Urine Color Yellow (YELLOW) 10/02/17 06:11 Urine Appearance Clear (CLEAR) 10/02/17 06:11 Urine pH 7.0 (5.0 - 8.0) 10/02/17 06:11 Ur Specific Mineral 1.010 (1.000-1.030) 10/02/17 06:11 Urine Protein Negative (NEGATIVE) 10/02/17 06:11 Urine Glucose (UA) Negative (NEGATIVE) 10/02/17 06:11 Urine Ketones Negative (NEGATIVE) 10/02/17 06:11 Urine Occult Blood Negative (NEGATIVE) 10/02/17 06:11 Urine Nitrite Negative (NEGATIVE) 10/02/17 06:11 Urine Bilirubin Negative (NEGATIVE) 10/02/17 06:11 Urine Urobilinogen Normal (NORMAL) 10/02/17 06:11 Ur Leukocyte Esterase Negative (NEGATIVE) 10/02/17 06:11 Urine RBC 0-3 /HPF (NEGATIVE) 10/02/17 06:11 Urine WBC 0-3 /HPF (NEGATIVE) 10/02/17 06:11 Ur Squamous Epith Cells Rare /HPF (NEGATIVE) 10/02/17 06:11 Urine Bacteria Negative /HPF (NEGATIVE) 10/02/17 06:11 Ur Culture Indicated? No/not indicated 10/02/17 06:11 Hospital Course: patient is a 62-year-old white female who was an ER admission after presenting with complaints of severe dizziness with nausea and weakness. Patient stated she was brought in by EMS she was unable to ambulate to the restroom due to severe nausea and weakness. Patient does have a history of hypertension. Patient states she was recently treated for the flu and thought she was improved from flulike illness. Patient had a CT of her head in the ER which was negative for acute findings.The patient was noted to have bradycardia with heart rate in 40s. Patient was transferred to [facility] for further care and evaluation. - Discharge Plan Disposition: XF [facility] Condition: Stable - Follow ups/Referrals Follow ups/Referrals: LUTHER SMITH [Primary Care Provider] - 3 days - Instructions
== END 2017-10-05 13:50 | disposition short-term general hospital (02) ==
LOC: ER 04:01 → ICU 07:38
PROVIDERS: ADMIT Internal Medicine; ATTEND Internal Medicine
DX: H65.03 Acute serous otitis media, bilateral (principal); R42 Dizziness and giddiness; R55 Syncope and collapse; R27.0 Ataxia, unspecified; R53.1 Weakness; I10 Essential (primary) hypertension; F41.8 Other specified anxiety disorders; K21.9 Gastro-esophageal reflux disease without esophagitis; E78.2 Mixed hyperlipidemia
CPT/HCPCS: 36415; 70450; 71045; 80053; 80061; 81001; 82550; 82553; 83735; 84484; 85025; 85610; 85730; 93005; 93010; 93880; 96365; 96374; 99284; A4222; S0181; G0378; J0696; J1100; J2060; J2405

== ENCOUNTER 2018-10-23 12:00 | Observation (INO) ==
--- NOTE | 2018-10-23 12:23 | DR.H&P ---
H&P - History & Physical for Day of: H&P Date: 10/23/18 - Chief Complaint Chief Complaint: LIRA, DIZZINESS, DIAZ, CHEST PRESSURE, ELEVATED BP - History of Present Illness History of Present Illness: 63 WF DIRECT ADMIT FROM DR DIXON OFFICE WITH CO LIRA, DIZZINESS, CHEST PRESSURE AND ELEVATED BLOOD PRESSURE FOR 5-6 DAYS. PT STATES SHE WAS SEEN IN ER AT [facility] TREATED FOR HTN AND D/C HOME. PT TAKES LISINOPRIL DAILY, HEART RATE 50 IN OFFICE BP 210/110 AND 212/100. PT STATES HER HEART RATE STAYS LOW. PT HAS PMH OF HTN, ERUM. PT ADMITTED TO [facility] R/O AMI, TREATMENT OF HYPERTENSIVE URGENCY. - Past Medical History Past Medical History: Anxiety, Arthritis, Hypertension Additional Medical History: fibrocystic breast disease - Past Surgical History Surgical History: Hysterectomy, Ortho Surgery - Family History Family Medical History: Heart Failure, Hypertension - Social History Does patient currently use any type of tobacco product: No Have you used tobacco products in the last 12 months: No Type of Tobacco Use: None Does any household member use tobacco: No Alcohol Use: None Drug Use: None - Medications Home Medications: codeine Allergy (Verified 10/02/17 04:03) - Review of Systems Constitutional: Weakness, Malaise Eyes: No Symptoms Reported ENT: No Symptoms Reported Respiratory: Shortness of Breath Cardiovascular: Chest Pain, Palpitations Gastrointestinal: Nausea Genitourinary: No Symptoms Reported Musculoskeletal: Back Pain Skin: No Symptoms Reported Neurological: Weakness, Other (LIRA, DIZZINESS) - Physical Exam Vital Signs: Blood Pressure [Left Arm] 147/67 Blood Pressure [Right Arm] 156/73 Blood Pressure 179/77 Oriented: Normal Eyes: Normal Ear: Normal Nose: Normal Throat: Normal Respiratory: Clear Throughout Cardiovascular: Bradycardia : Normal Auscultation: Bowel Sounds: Normal Palpation: Normal Tenderness: Normal Skin: Normal Musculoskeletal: Back:Lumbar Psychiatric: Anxiety Affect: Anxious Speech Pattern: Clear, Appropriate - Assessment/Plan (1) Hypertensive urgency Status: Acute Plan: ADMIT TO ICU, SERIAL CE AND EKG. ON ADMISSION, CXR. BP CONTROL, CONTINUE LISINOPRIL 10MG BID. 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
[2018-10-23] MEDS ORDERED: APRESOLINE INJ 20 MG VIAL IVP PRN (12:27)
[2018-10-23] MEDS: ZESTRIL TAB 10 MG PO SCH ×2 (14:59→21:42)
[2018-10-23] MEDS: PROTONIX INJ 40 MG VIAL IVP SCH (14:59)
[2018-10-23 15:14] LABS: BASOPHILS # (AUTO) 0.1 X10^3/uL (0.0-0.1); BASOPHILS % (AUTO) 1.3 % (0.2-1.0); EOSINOPHILS # (AUTO) 0.1 x10^3/uL (0.0-0.2); EOSINOPHILS % (AUTO) 1.3 % (0.9-2.9); HEMATOCRIT 38.9 % (36.0-47.0); LYMPHOCYTES # (AUTO) 1.8 X10^3/uL (1.3-2.9); LYMPHOCYTES % (AUTO) 20.9 % (21.0-51.0); MEAN CORPUSCULAR HEMOGLOBIN 30.2 pg (27.0-34.0); MEAN CORPUSCULAR HGB CONC 33.5 g/dL (33.0-35.0); MEAN CORPUSCULAR VOLUME 90.2 fL (80.0-100.0); MEAN PLATELET VOLUME 9.2 fL (7.4-11.0); MONOCYTES # (AUTO) 0.5 x10^3/uL (0.3-0.8); MONOCYTES % (AUTO) 5.9 % (0.0-13.0); NEUTROPHILS # (AUTO) 6.2 x10^3/uL (2.2-4.8); NEUTROPHILS % (AUTO) 70.6 % (42.0-75.0); PLATELET COUNT 274 X10^3/uL (150.0-450.0); RED BLOOD COUNT 4.31 X10^6/uL (3.5-5.4); RED CELL DISTRIBUTION WIDTH 12.7 % (11.6-16.5); WHITE BLOOD COUNT 8.8 X10^3/uL (3.6-10.0)
[2018-10-23 15:15] VITALS: BMI 27.0
[2018-10-23 15:19] LABS: APPEARANCE,URINE CLEAR (CLEAR); BILIRUBIN,URINE NEGATIVE (NEGATIVE); BLOOD/HEMOGLOBIN,URINE NEGATIVE (NEGATIVE); COLOR,URINE YELLOW (YELLOW); GLUCOSE, URINE NEGATIVE (NEGATIVE); KETONES,URINE NEGATIVE (NEGATIVE); NITRITES,URINE NEGATIVE (NEGATIVE); PROTEIN,URINE NEGATIVE (NEGATIVE)
[2018-10-23 15:20] LABS: LEUKOCYTE ESTERASE ,URINE NEGATIVE (NEGATIVE); UROBILINOGEN,URINE NORMAL (NORMAL)
[2018-10-23 15:26] LABS: ALANINE AMINOTRANSFERASE 22 Units/L (12-78); ALBUMIN 3.9 g/dL (3.4-5.0); ALKALINE PHOSPHATASE 87 Units/L (46-116); ASPARTATE AMINO TRANSFERASE 15 Units/L (15-37); BLOOD UREA NITROGEN 20 mg/dL (7-18); CALCIUM 9.5 mg/dL (8.5-10.1); CARBON DIOXIDE 28.6 mmol/L (21-32); CHLORIDE 105 mmol/L (98-107); CREATININE 1.25 mg/dL (0.55-1.02); SODIUM 143 mmol/L (136-145); TOTAL PROTEIN 7.6 g/dL (6.4-8.2); eGFR NON BLACK RACES 46 (>60)
[2018-10-23 15:46] LABS: CREATINE KINASE 105 Units/L (26-192); CREATINE KINASE MB < 1.0 ng/mL (0-4.0); TROPONIN I < 0.02 ng/mL (0-1.5)
[2018-10-23] MEDS ORDERED: PERCOCET TAB 5/325 MG PO PRN (17:23)
[2018-10-23] MEDS ORDERED: PROTONIX TAB 40 MG PO SCH (18:00)
[2018-10-23] MEDS ORDERED: ZOFRAN INJ 4 MG VIAL IVP PRN (19:00)
[2018-10-23 19:04] LABS: CREATINE KINASE 103 Units/L (26-192); CREATINE KINASE MB < 1.0 ng/mL (0-4.0); TROPONIN I 0.04 ng/mL (0-1.5)
[2018-10-23] MEDS ORDERED: XALATAN OP SCH (21:00)
[2018-10-23] MEDS: KLONOPIN TAB 0.5 MG PO PRN (21:43)
[2018-10-24 00:57] LABS: CKMB % 1.1 % (<4); CREATINE KINASE 88 Units/L (26-192); CREATINE KINASE MB < 1.0 ng/mL (0-4.0); TROPONIN I 0.03 ng/mL (0-1.5)
[2018-10-24 06:12] LABS: BASOPHILS # (AUTO) 0.1 X10^3/uL (0.0-0.1); BASOPHILS % (AUTO) 1.2 % (0.2-1.0); EOSINOPHILS # (AUTO) 0.1 x10^3/uL (0.0-0.2); EOSINOPHILS % (AUTO) 1.9 % (0.9-2.9); HEMOGLOBIN 12.6 g/dL (12.0-16.0); LYMPHOCYTES # (AUTO) 2.1 X10^3/uL (1.3-2.9); LYMPHOCYTES % (AUTO) 27.6 % (21.0-51.0); MEAN CORPUSCULAR HEMOGLOBIN 30.5 pg (27.0-34.0); MEAN CORPUSCULAR VOLUME 89.8 fL (80.0-100.0); MEAN PLATELET VOLUME 9.4 fL (7.4-11.0); MONOCYTES # (AUTO) 0.5 x10^3/uL (0.3-0.8); MONOCYTES % (AUTO) 6.2 % (0.0-13.0); NEUTROPHILS # (AUTO) 4.9 x10^3/uL (2.2-4.8); NEUTROPHILS % (AUTO) 63.1 % (42.0-75.0); PLATELET COUNT 243 X10^3/uL (150.0-450.0); RED BLOOD COUNT 4.12 X10^6/uL (3.5-5.4); RED CELL DISTRIBUTION WIDTH 12.8 % (11.6-16.5); WHITE BLOOD COUNT 7.8 X10^3/uL (3.6-10.0)
--- NOTE | 2018-10-24 06:39 | RAD ---
HISTORY: Hypertension Study: Chest AP portable Comparison: 10/17/2018 Findings: The heart is upper limits normal in size. The shaun are normal. No congestive heart failure is noted. No acute alveolar infiltrates or pleural effusions are identified. The bony thorax is unremarkable. IMPRESSION: No significant abnormality identified Reported By:
[2018-10-24 06:55] LABS: ALANINE AMINOTRANSFERASE 21 Units/L (12-78); ALBUMIN 3.5 g/dL (3.4-5.0); ALKALINE PHOSPHATASE 77 Units/L (46-116); ASPARTATE AMINO TRANSFERASE 16 Units/L (15-37); BLOOD UREA NITROGEN 21 mg/dL (7-18); CALCIUM 9.1 mg/dL (8.5-10.1); CARBON DIOXIDE 26.7 mmol/L (21-32); CHLORIDE 106 mmol/L (98-107); CHOL/HDL RATIO 4.9 (0.0-5.0); CHOLESTEROL 245 mg/dL (0-200); CREATININE 1.23 mg/dL (0.55-1.02); HDL CHOLESTEROL 50 mg/dL (40-60); SODIUM 141 mmol/L (136-145); TRIGLYCERIDES 84 mg/dL (0-150); eGFR NON BLACK RACES 47 (>60)
[2018-10-24] MEDS: ZESTRIL TAB 10 MG PO SCH (08:43)
[2018-10-24] MEDS: PROTONIX INJ 40 MG VIAL IVP SCH (08:43)
[2018-10-24] MEDS: KLONOPIN TAB 0.5 MG PO PRN (10:34)
[2018-10-24 15:19] LABS: CKMB % 0.5 % (<4); CREATINE KINASE MB 0.4 ng/mL (0-4.0); TROPONIN I 0.01 ng/mL (0-1.5)
[2018-10-24 15:29] VITALS: BP 163/71
== END 2018-10-24 16:02 | disposition short-term general hospital (02) ==
LOC: ICU
PROVIDERS: ADMIT Internal Medicine; ATTEND Internal Medicine
DX: R00.1 Bradycardia, unspecified; R51 Headache; Z79.899 Other long term (current) drug therapy; R07.89 Other chest pain; R55 Syncope and collapse; R94.4 Abnormal results of kidney function studies; R42 Dizziness and giddiness; R06.02 Shortness of breath; I10 Essential (primary) hypertension
CPT/HCPCS: 36415; 71010; 71045; 80053; 80061; 81003; 82550; 82553; 83735; 84484; 85025; 85610; 85730; 93005; 96374; A4216; A4222; C9113; G0378; J0360; J2405